=== PATIENT | female | born 1965 | race Caucasian/White ===

== ENCOUNTER 2021-10-05 19:36 | Emergency (ER) | payer OTHER, SELFPAY ==
--- NOTE | 2021-10-05 | ECG_ITS ---
Test Reason : CHEST PAIN Blood Pressure : / mmHG Vent. Rate : 093 BPM Atrial Rate : 093 BPM P-R Int : 160 ms QRS Dur : 082 ms QT Int : 308 ms P-R-T Axes : 074 092 034 degrees QTc Int : 382 ms Normal sinus rhythm Rightward axis Nonspecific T wave abnormality Abnormal ECG No previous ECGs available Referred By: Generic ED Physician Electronically Signed By:Aristeo Arriola
--- NOTE | ~2021-10-05 | XR_ITS ---
EXAMINATION: XR CHEST CLINICAL INFORMATION: Chest pain COMPARISON: None TECHNIQUE: Frontal portable view of the chest was obtained. 9:40 PM FINDINGS: No significant abnormality is noted involving the heart, lungs, mediastinum, bony thorax or soft tissues. XR/XR chest 1V IMPRESSION: Unremarkable examination.
[2021-10-05 19:37] VITALS: BP 183/98; PULSE 92; RESP 18; TEMP 36.8; O2SAT 100; BMI 22.1
[2021-10-05 19:52] LABS: MANUAL DIFF FLAG NO
[2021-10-05 19:53] LABS: Basophils Percent Auto 0.3 % (0-2); Eosinophils Absolute Auto 0.2 X10*3/uL (0.0-0.4); Eosinophils Percent Auto 3.1 % (0-4); Hematocrit 42.1 % (37.0-47.0); Hemoglobin 13.2 g/dl (12.0-16.0); Imm Gran Abs Auto 0.02 X10*3/uL (0.00-0.03); Imm Gran Pct Auto 0.3 % (0.0-0.4); Lymphocytes Absolute Auto 3.1 X10*3/uL (1.2-4.9); Lymphocytes Percent Auto 47.7 % (20-40); Mean Corpuscular HGB Conc 31.4 g/dl (31.0-35.0); Mean Corpuscular Hemoglobin 25.6 pg (27.0-33.0); Mean Corpuscular Volume 81.6 fL (80.0-98.0); Mean Platelet Volume 8.9 fL (9.4-12.3); Monocytes Absolute Auto 0.4 X10*3/uL (0.1-1.2); Monocytes Percent Auto 5.5 % (2-11); Neutrophils Absolute Auto 2.8 x10*3/uL (2.0-8.3); Neutrophils Percent Auto 43.1 % (45-73); Platelet Count 353 X10*3/uL (160-400); Red Blood Count 5.16 X10*6/uL (4.20-5.50); Red Cell Distribution Width 12.8 % (11.0-16.0); White Blood Count 6.5 X10*3/uL (4.8-10.8)
[2021-10-05 20:12] LABS: Troponin-I High Sensitivity < 3.5 ng/L (<3.5-17.0)
[2021-10-05 20:17] LABS: Anion Gap 11 (12-20); Blood Urea Nitrogen 13 mg/dL (9-16); Calcium 10.9 mg/dL (8.4-10.2); Carbon Dioxide 30 mmol/L (22-29); Chloride 102 mmol/L (96-108); Creatinine Clr Calc Pharmacy 59.1; Estimated Glomerular Filt Rate > 60; Glucose Random 91 mg/dL (60-115); Potassium 3.8 mmol/L (3.3-5.1); Sodium 139 mmol/L (135-145)
[2021-10-05 20:31] VITALS: BP 160/92; PULSE 75; RESP 16; TEMP 37.1; O2SAT 98
--- NOTE | 2021-10-05 20:50 | ED.CHESTPAIN ---
HPI - Chest Pain General Chief Complaint: Chest Pain Stated Complaint: chest pain 3xdays Time Seen by Provider: 10/05/21 20:50 Source: patient Mode of arrival: ambulatory Limitations: no limitations History of Present Illness HPI narrative: Patient history of anxiety no known coronary disease been having high blood pressure for last 1 month checking at work and 180s/90s, states that she had COVID last year and also had a stroke with face twisting but never went to the hospital for that no confirmation of the stroke no other focal weakness. Also she said she had a heart attack but never seen a change director and never had no workup done patient keeps changing adding on the complains now saying that she has mid chest pain and right hand numbness and left leg numbness sometimes cyst chest pain is sharp she is going on for last 3 days localized in mid epigastric area no heartburn feeling no radiation of the pain no shortness of breath no diaphoresis no nausea no vomiting patient seems very anxious on arrival Related Data Previous Rx's Medication Instructions Recorded lisinopril 5 mg tablet 5 mg PO DAILY #30 tab 10/05/21 Allergies Allergy/AdvReac Type Severity Reaction Status Date / Time No Known Allergies Allergy Verified 10/05/21 19:44 [No Known Allergies*] Review of Systems Review of Systems: Yes all other systems are reviewed and are negative PMFSH Social History Social History Advance Directives: No Advance Directives Information Provided: No Patient : No Physical Exam Vital Signs: Vital Signs: Last Vital Signs Temp 98.8 F 10/05/21 20:31 Pulse 74 10/05/21 21:00 Resp 16 10/05/21 20:31 BP 171/90 H 10/05/21 21:00 Pulse Ox 97 10/05/21 21:00 BMI result Body Mass Index 22.1 Appearance: Alert. Oriented X3. No acute distress. Anxious Eyes: No pallor icterus ENT: Pharynx normal. Oral Mucosa moist Neck: Normal inspection. Neck supple. CVS: Normal heart rate and rhythm. Pulses normal. Respiratory: No respiratory distress. Equal air entry bilateral, Abdomen: Soft and nontender. Bowel sounds are present, no mass palpable, no CVA tenderness Skin: Skin warm and dry. Normal skin color. Normal skin turgor. Extremities: No lower extremity edema. No calf tenderness Neuro: Oriented X 3. No motor deficit. No sensory deficit.No cerebellar signs , cranial nerves II-XII intact MDM - Chest Pain MDM Narrative Medical decision making narrative: Patient with multiple complaints very anxious on arrival blood pressure was checked was 183/98 repeat was 170/90 patient does have a blood pressure for last 1 month has not seen a PCP or a long-time will give her lisinopril 5 mg and also to the chest x-ray patient high sensitive troponin negative EKG without any acute ischemic change Lab Data Attestation: I reviewed the patient's lab results. Result diagrams: 10/05/21 19:48 10/05/21 19:48 Labs: Lab Results 10/05/21 10/05/21 10/05/21 Range/Units 19:48 19:48 19:48 WBC 6.5 (4.8-10.8) X10*3/uL RBC 5.16 (4.20-5.50) X10*6/uL Hgb 13.2 (12.0-16.0) g/dl Hct 42.1 (37.0-47.0) % MCV 81.6 (80.0-98.0) fL MCH 25.6 L (27.0-33.0) pg MCHC 31.4 (31.0-35.0) g/dl RDW 12.8 (11.0-16.0) % Plt Count 353 (160-400) X10*3/uL MPV 8.9 L (9.4-12.3) fL Immature Gran % (Auto) 0.3 (0.0-0.4) % Neut % (Auto) 43.1 L (45-73) % Lymph % (Auto) 47.7 H (20-40) % Wagoner % (Auto) 5.5 (2-11) % Eos % (Auto) 3.1 (0-4) % Baso % (Auto) 0.3 (0-2) % Lymph # (Auto) 3.1 (1.2-4.9) X10*3/uL Wagoner # (Auto) 0.4 (0.1-1.2) X10*3/uL Eos # (Auto) 0.2 (0.0-0.4) X10*3/uL Baso # (Auto) 0.0 (0.0-0.2) X10*3/uL Abs Immat Gran (auto) 0.02 (0.00-0.03) X10*3/uL Absolute Neuts (auto) 2.8 (2.0-8.3) x10*3/uL Absolute Nucleated RBC 0.000 (0.0-0.012) X10*3/uL Nucleated RBC % (auto) 0.0 (0.0-0.2) /100WBC Sodium 139 (135-145) mmol/L Potassium 3.8 (3.3-5.1) mmol/L Chloride 102 (96-108) mmol/L Carbon Dioxide 30 H (22-29) mmol/L Anion Gap 11 L (12-20) BUN 13 (9-16) mg/dL Creatinine 0.89 (0.5-1.4) mg/dL Estim Creat Clear Calc 59.1 Estimated GFR > 60 Random Glucose 91 (60-115) mg/dL Calcium 10.9 H (8.4-10.2) mg/dL Troponin I High Sens < 3.5 (<3.5-17.0) ng/L ECG Data ECG #1: Attestation: I personally reviewed and interpreted this ECG as follows: Interpretation: Normal sinus rhythm heart rate 93 beats per minute right-sided axis normal interval normal axis no acute restricted acute ischemia Discharge Plan Discharge Clinical Impression: Atypical chest pain, Hypertension Patient Disposition: Home, Self-Care Instructions: Chest Pain (ED), Hypertension (ED) Additional Instructions: Your chest pain does not seems to be cardiac in origin , follow-up with PCP for further evaluation Your blood pressure was slightly elevated possibly have bottle and hypertension will started on lisinopril 5 mg daily which she should take daily decrease salt intake and follow with PCP Prescriptions: New lisinopril 5 mg tablet 5 mg PO DAILY Qty: 30 0RF Interventions: ED Discharge Assessment Last Done: 10/05/21 22:28
[2021-10-05 20:57] VITALS: PULSE 73
[2021-10-05 21:00] VITALS: BP 171/90; PULSE 74; O2SAT 97
[2021-10-05] MEDS: lisinopriL 5 MG TABLET PO (21:32)
== END 2021-10-05 22:41 | disposition home or self-care (01) ==
PROVIDERS: Emergency Provider Internal Medicine
DX: R07.89 Other chest pain (principal); R10.13 Epigastric pain; I10 Essential (primary) hypertension; Z79.899 Other long term (current) drug therapy
CPT/HCPCS: 36415; 71045; 80048; 84484; 85025; 93005; 99283; 99285

== ENCOUNTER 2022-01-24 17:28 | Emergency (ER) | payer OTHER, SELFPAY ==
--- NOTE | ~2022-01-24 | XR_ITS ---
Examination: XR hand wrist RT Indication: pain Comparison: No pertinent prior studies are currently available for comparison. Technique: 4 plain film views of the right wrist Findings: Bones are in normal anatomic alignment with no acute fracture or dislocation seen. Carpal alignment is unremarkable. No bony destructive lesions or erosions. No periosteal reaction. No radiopaque foreign body or soft tissue gas. XR/XR hand wrist RT Impression: No acute bony abnormality.
[2022-01-24 17:42] VITALS: BP 169/94; PULSE 87; RESP 18; TEMP 36.8; O2SAT 99; BMI 21.4
--- NOTE | 2022-01-24 20:22 | ED.EXTPRO ---
HPI - Extremity Problem General Chief complaint: Extremity Injury, Upper Stated complaint: pain in arm, blood clot? Time Seen by Provider: 01/24/22 19:13 Source: patient Mode of arrival: ambulatory Limitations: no limitations History of Present Illness HPI Narrative: 56-year-old female with a history of hypertension presents with constant right wrist pain which radiates up to the elbow since April of 2021. Patient denies any injury or trauma. She tells me the pain began when she was diagnosed with COVID-19. She has not followed up with a primary care doctor and is trying to establish one currently. Patient reports pain is constant. It starts in the right wrist and radiates up to the elbow and down to the right thumb. It is associated with some numbness and tingling. Patient feels like the vein over my wrist is swollen and painful. She is right-handed. She does work at a job that requires her to use her hands frequently. She denies any chest pain, shortness of breath, fevers, chills. Related Data Previous Rx's Medication Instructions Recorded lisinopril 5 mg tablet 5 mg PO DAILY #30 tabs 10/05/21 naproxen 500 mg tablet 500 mg PO BID PRN pain #30 tabs 01/24/22 prednisone 20 mg tablet 40 mg PO DAILY #10 tabs 01/24/22 Allergies Allergy/AdvReac Type Severity Reaction Status Date / Time No Known Allergies Allergy Verified 01/24/22 17:41 [No Known Allergies*] Review of Systems Review of Systems: Yes all other systems are reviewed and are negative Constitutional: Constitutional: Reports no additional constitutional complaints, Denies body ache(s), Denies chills, Denies fever(s), Denies headache(s) and Denies weakness Eyes: Eyes: Reports no additional eye complaints and Denies change in vision ENT: Reports system reviewed and no additional complaints, except as documented, Denies dizziness, Denies headache(s), Denies nasal congestion, Denies nasal discharge and Denies neck pain Cardiovascular: Cardiovascular: Reports no additional cardiovascular complaints, Denies chest pain, Denies leg edema and Denies dyspnea Respiratory: Respiratory: Reports no additional respiratory complaints, Denies cough and Denies dyspnea Gastrointestinal: Gastrointestinal: Reports no additional gastrointestinal complaints, Denies abdominal pain, Denies diarrhea, Denies nausea and Denies vomiting Genitourinary: Genitourinary: Reports no additional female genitourinary complaints and Denies urinary incontinence Musculoskeletal: Musculoskeletal: Reports no additional musculoskeletal complaints, Denies back pain, Reports arthralgias, Denies joint swelling, Denies neck pain, Reports numbness, Reports radiating pain into limb and Reports tingling Integumentary/Breasts: Skin/Breast: Reports system reviewed and no additional complaints, except as docu and Denies rash Neurologic: Reports system reviewed and no additional complaints, except as documented, Denies Abnormal speech present, Denies dizziness, Denies headache(s), Reports numbness, Reports tingling and Denies weakness PMFSH Past Medical History Attestation statement: The following information was validated with the patient. Source: old records reviewed and nursing notes reviewed Social History Social History Advance Directives: No Advance Directives Information Provided: No Physical Exam Vital Signs: Vital Signs: Last Vital Signs Temp 98.2 F 01/24/22 17:42 Pulse 87 01/24/22 17:42 Resp 18 01/24/22 17:42 BP 169/94 H 01/24/22 17:42 Pulse Ox 99 01/24/22 17:42 O2 Del Method 01/24/22 17:42 BMI result Body Mass Index 21.4 Const: General: cooperative, healthy appearing, comfortable and no acute distress Orientation/consciousness: patient oriented x3 Limitations: no limitations HEENT: Head: Yes normal to inspection Ears: hearing grossly normal bilaterally General nose exam: Normal external nose present Face and sinus: Yes normal facial exam Mouth: Normal oral and palatal mucosa present Throat: Yes posterior oropharynx normal Eyes: General: appearance normal, both eyes and all related structures Pupils: Equal, round and reactive pupils present Neck: Neck: Yes normal visual inspection Chest: Chest palpation & inspection: normal inspection of the chest Resp: Effort & Inspection: normal respiratory effort Auscultation: clear to auscultation bilaterally Cardio: Rate: regular rate Rhythm: regular rhythm Peripheral pulses: Peripheral pulses 2+ throughout GI: Inspection: Yes normal to inspection Palpation (GI): Soft to palpation and nontender Auscultation: normal bowel sounds Back/Spine/Pelvis: Thoracic/Lumbar Spine: thoracic and lumbar spine normal to inspection Skin: General skin exam: no rashes or lesions noted Neuro: General: patient oriented x3, no focal motor deficits and normal sensation to monofilament Cranial nerves: Yes Equal, round and reactive pupils present Cognition (Neuro): normal cognition Speech: No Abnormal speech present Gait exam (Neuro): Normal gait present Motor exam (neuro): 5/5 motor strength present throughout Extrem: Other: Pain over the right wrist over the radial aspect with no appreciable swelling/redness noted. 2+ radial and ulnar pulses +finklestein test Negative tinel signs Unable to tolerate phalen test d/t pain FROM of hand/wrist/elbow Strength 5/5 RUE NV intact distally. Sensation intact on exam General: Yes normal to inspection Course Course Course Narrative: x-rays show no acute bony abnormality. Exam is c/w with dequervain tendoitis. Patient to be placed in a velcro cock up splint, will start NSAID, prednisone course. She can f/u with orthopedics for persistent symptoms. Reviewed worrisome signs/symptoms with patient and when to seek additional care (redness, swelling, fever). Comfortable with discharge home. MDM - Extremity (Nontraumatic) MDM Narrative Medical decision making narrative: 56 yo female who is right handed presents with 10 months of right wrist pain which radiates down to the right thumb and up to the right elbow with numbness/tingling which is constant with no known injury or trauma. On exam pain over the right radial wrist which is worsened with palpation and finklestein test. Sensation normal on exam. Will check x-rays. DDX dequervains, tendonitis, carpal tunnel No swelling, redness, risk factors concerning for DVT Medical Records Attestation: I reviewed the patient's medical records. Lab Data Attestation: I reviewed the patient's lab results. Imaging Data hand/wrist xray: Attestation: I personally reviewed and interpreted this imaging study as follows: Radiologist's impression: Examination: XR hand wrist RT Indication: pain Comparison:? No pertinent prior studies are currently available for comparison. Technique: 4 plain film views of the right wrist Findings: Bones are in normal anatomic alignment with no acute fracture or dislocation seen. Carpal alignment is unremarkable. No bony destructive lesions or erosions. No periosteal reaction. No radiopaque foreign body or soft tissue gas. XR/XR hand wrist RT Impression: No acute bony abnormality. Procedures Orthopedic Splinting/Casting Injury #1: Side: right Upper Extremity Injury Location: wrist Additional Comments: cock up splint-velcro Discharge Plan Discharge Clinical Impression: De Quervain's disease (radial styloid tenosynovitis) Patient Disposition: Home, Self-Care Instructions: De Quervain Disease (ED) Additional Instructions: ice to the area limit use of the extremity Prescriptions: New naproxen 500 mg tablet 500 mg PO BID PRN (Reason: pain) Qty: 30 0RF prednisone 20 mg tablet 40 mg PO DAILY Qty: 10 0RF No Action lisinopril 5 mg tablet 5 mg PO DAILY Qty: 30 0RF Referrals: [facility] [place] [facility] [Provider Group] - 2 weeks Stand Alone Forms: Work/School Release Interventions: ED Discharge Assessment Last Done: 01/24/22 21:28 Discharge Date/Time: 01/24/22 21:29
== END 2022-01-24 21:29 | disposition home or self-care (01) ==
PROVIDERS: Emergency Provider Emergency Medicine
DX: M65.4 Radial styloid tenosynovitis [de Quervain] (principal); M79.601 Pain in right arm
CPT/HCPCS: 73110; 73130; 99282; 99283

== ENCOUNTER 2022-08-06 22:22 | Emergency (ER) | payer OTHER, SELFPAY ==
--- NOTE | ~2022-08-06 | XR_ITS ---
EXAMINATION: XR CHEST CLINICAL INFORMATION: Chest pain COMPARISON: 10/05/2021 TECHNIQUE: Frontal view of the chest was obtained. FINDINGS: The lungs appear hyperinflated. No focal consolidation is seen. No evidence of pneumothorax, pleural effusion, or pulmonary edema. The cardiomediastinal contour is unremarkable. No acute osseous findings are seen. XR/XR chest 1V IMPRESSION: No acute cardiopulmonary findings. Hyperinflated lungs suggesting COPD.
--- NOTE | 2022-08-06 22:24 | ECG_ITS ---
Test Reason : CHEST PAIN Blood Pressure : / mmHG Vent. Rate : 080 BPM Atrial Rate : 080 BPM P-R Int : 164 ms QRS Dur : 088 ms QT Int : 360 ms P-R-T Axes : 069 092 077 degrees QTc Int : 415 ms Normal sinus rhythm Rightward axis Borderline ECG When compared with ECG of 05-OCT-2021 19:36, T wave inversion no longer evident in Inferior leads Referred By: Generic ED Physician Electronically Signed By:LISA GUAMAN MD
[2022-08-06 22:34] VITALS: BP 163/93; PULSE 86; RESP 16; TEMP 36.8; O2SAT 99; BMI 22.6
[2022-08-06 22:51] LABS: Basophils Percent Auto 0.4 % (0-2); Eosinophils Absolute Auto 0.2 X10*3/uL (0.0-0.4); Hematocrit 41.1 % (37.0-47.0); Hemoglobin 12.9 g/dl (12.0-16.0); Imm Gran Abs Auto 0.02 X10*3/uL (0.00-0.03); Imm Gran Pct Auto 0.3 % (0.0-0.4); Lymphocytes Absolute Auto 3.4 X10*3/uL (1.2-4.9); Lymphocytes Percent Auto 45.9 % (20-40); MANUAL DIFF FLAG NO; Mean Corpuscular HGB Conc 31.4 g/dl (31.0-35.0); Mean Corpuscular Hemoglobin 25.6 pg (27.0-33.0); Mean Corpuscular Volume 81.7 fL (80.0-98.0); Mean Platelet Volume 8.8 fL (9.4-12.3); Monocytes Absolute Auto 0.4 X10*3/uL (0.1-1.2); Monocytes Percent Auto 5.7 % (2-11); Neutrophils Absolute Auto 3.3 x10*3/uL (2.0-8.3); Neutrophils Percent Auto 44.7 % (45-73); Platelet Count 346 X10*3/uL (160-400); Red Blood Count 5.03 X10*6/uL (4.20-5.50); Red Cell Distribution Width 12.4 % (11.0-16.0); White Blood Count 7.4 X10*3/uL (4.8-10.8)
[2022-08-06 23:03] LABS: COVID-19 Test Negative (Negative); IDNOW Serial# 6674DD1D
[2022-08-06 23:05] LABS: Anion Gap 12 (12-20); Blood Urea Nitrogen 17 mg/dL (9-16); Calcium 10.1 mg/dL (8.4-10.2); Carbon Dioxide 25 mmol/L (22-29); Chloride 107 mmol/L (96-108); Estimated Glomerular Filt Rate > 60; Glucose Random 98 mg/dL (60-115); Magnesium 1.6 mg/dL (1.6-2.6); Potassium 4.1 mmol/L (3.3-5.1); Sodium 140 mmol/L (135-145)
[2022-08-06 23:13] LABS: Troponin-I High Sensitivity < 3.5 ng/L (<3.5-17.0)
[2022-08-06 23:39] LABS: Alanine Aminotransferase 34 U/L (0-31); Albumin Level 4.3 g/dL (3.5-5.0); Alkaline Phosphatase 112 U/L (39-117); Aspartate Amino Transferase 24 U/L (5-31); Bilirubin Direct < 0.2 mg/dL (0.0-0.5); Bilirubin Total 0.3 mg/dL (0.0-1.0); Lipase 19 U/L (8-78); Total Protein 7.4 g/dL (6.5-8.0)
--- NOTE | 2022-08-07 00:17 | ED.CHESTPAIN ---
HPI - Chest Pain General Chief Complaint: Chest Pain Stated Complaint: chest pain,cough Time Seen by Provider: 08/07/22 00:16 Source: patient Mode of arrival: ambulatory History of Present Illness HPI narrative: 57-year-old female who has been recently evaluated and appears to yandy recent diagnosis of asthma, denies any smoking history and states that she saw a travel information center supervisor yesterday that he did not inform her of anything. Patient states that she has had constant chest pain that feels like spasms for the past 3 days this is not been associated with any fevers or chills but she has also had a cough without GI or symptoms. Related Data Previous Rx's Medication Instructions Recorded lisinopril 5 mg tablet 5 mg PO DAILY #30 tabs 10/05/21 naproxen 500 mg tablet 500 mg PO BID PRN pain #30 tabs 01/24/22 prednisone 20 mg tablet 40 mg PO DAILY #10 tabs 01/24/22 prednisone 50 mg tablet 50 mg PO DAILY 4 days #4 tabs 08/07/22 Allergies Allergy/AdvReac Type Severity Reaction Status Date / Time No Known Allergies Allergy Verified 08/06/22 22:34 [No Known Allergies*] Review of Systems Review of Systems: Pertinent positives and negatives as stated in HPI ON LICENSE OF [facility] Past Medical History Source: nursing notes reviewed Social History Social History Alcohol intake: never Smoked in Last 30 Days: No Use of substances other than those prescribed or required for medical reasons: No Advance Directives: No Advance Directives Information Provided: No Patient : No Physical Exam Vital Signs: Vital Signs: Last Vital Signs Temp 98.3 F 08/07/22 00:20 Pulse 79 08/07/22 00:40 Resp 14 08/07/22 00:40 BP 152/96 H 08/07/22 00:20 Pulse Ox 98 08/07/22 00:20 O2 Del Method 08/07/22 00:20 BMI result Body Mass Index 22.6 VITAL SIGNS: Reviewed. GENERAL: Well developed, well nourished, in no acute distress. HEAD: Normocephalic/atraumatic EYES: PERRLA, EOMI EARS: Ext canals without abnormality, TMs non-bulging and non-erythematous NOSE: Nares patent bilateral OROPHARYNX: no oral lesions noted, posterior pharynx clear NECK: Supple, no adenopathy LUNGS: Normal breath sounds. No adventitious sounds or accessory muscle use. SpO2<98> CARDIOVASCULAR: Regular rate and rhythm without noted murmurs, no JVD or lower extremity edema. ABDOMEN: Soft, non-tender, non-distended with bowel sounds. MUSCULOSKELETAL: No tenderness, deformities, or effusions noted on gross inspection. EXTREMITIES: No cyanosis, clubbing or edema. SKIN: Inspection of the skin reveals no rashes NEUROLOGIC: Alert and oriented x 4. Strength and sensation to light touch were grossly intact x 4. Medications Administered Discontinued Medications Generic Name Dose Route Start Last Admin Trade Name Freq PRN Reason Stop Dose Admin Al Hydroxide/Mg Hydroxide 30 ml 08/06/22 23:17 08/07/22 00:32 Magnesium Hydrox/Alum Hydrox 30 Ml Oral.Susp PO 08/06/22 23:18 30 ml ONCE ONE Administration Amlodipine Besylate 5 mg 08/07/22 00:28 08/07/22 00:48 Amlodipine Besylate 5 Mg Tablet PO 08/07/22 00:29 5 mg ONCE ONE Administration Protocol Benzonatate 200 mg 08/07/22 00:31 08/07/22 00:48 Benzonatate 100 Mg Capsule PO 08/07/22 00:32 200 mg ONCE ONE Administration Albuterol Sulfate 10 mg/ 0 mg 08/07/22 00:26 08/07/22 00:40 Ipratropium [place] 0.5 mg INHALE 08/07/22 00:27 1 each ONCE ONE Administration Lidocaine HCl 10 ml 08/06/22 23:17 08/07/22 00:32 Lidocaine Hcl Viscous 2 % 15 Ml Solution MUCOUS MEM 08/06/22 23:18 10 ml ONCE ONE Administration Prednisone 50 mg 08/07/22 00:26 08/07/22 00:33 Prednisone 10 Mg Tablet PO 08/07/22 00:27 50 mg ONCE ONE Administration Sucralfate 1 gm 08/07/22 00:31 08/07/22 00:48 Sucralfate Oral Suspension 1 Gm/10 Ml Oral.Susp PO 08/07/22 00:32 1 gm ONCE ONE Administration Medical Decision Making Medical Decision Making MDM Narrative: 57-year-old female with history and clinical presentation after review of investigations as well as review of current medication list I suspect patient may have a component of esophagitis with a combination of prednisone naproxen being noted on her medication list. She has no fever/ chills to suggest infectious etiology and no GI or symptoms to further support any sort of viral illness. My interpretation is in agreement with radiology's impression of the imaging study. Patient will receive a 10 mg DuoNeb and 50 mg of prednisone in addition to a GI cocktail Carafate. HEART Score-2 Reviewed all investigations and on re-evaluation patient is feeling much better and my interpretation is that patient likely had mild exacerbation of asthma. I discussed all treatments and plans with her as well as results and she will follow-up with her primary care provider on Monday. Differential Diagnosis Please see the discussion above Lab Data Please see the discussion above 08/06/22 22:45 08/06/22 22:45 Labs: Lab Results 08/06/22 08/06/22 08/06/22 Range/Units 22:45 22:45 22:45 WBC 7.4 (4.8-10.8) X10*3/uL RBC 5.03 (4.20-5.50) X10*6/uL Hgb 12.9 (12.0-16.0) g/dl Hct 41.1 (37.0-47.0) % MCV 81.7 (80.0-98.0) fL MCH 25.6 L (27.0-33.0) pg MCHC 31.4 (31.0-35.0) g/dl RDW 12.4 (11.0-16.0) % Plt Count 346 (160-400) X10*3/uL MPV 8.8 L (9.4-12.3) fL Immature Gran % (Auto) 0.3 (0.0-0.4) % Neut % (Auto) 44.7 L (45-73) % Lymph % (Auto) 45.9 H (20-40) % [place] % (Auto) 5.7 (2-11) % Eos % (Auto) 3.0 (0-4) % Baso % (Auto) 0.4 (0-2) % Lymph # (Auto) 3.4 (1.2-4.9) X10*3/uL [place] # (Auto) 0.4 (0.1-1.2) X10*3/uL Eos # (Auto) 0.2 (0.0-0.4) X10*3/uL Baso # (Auto) 0.0 (0.0-0.2) X10*3/uL Abs Immat Gran (auto) 0.02 (0.00-0.03) X10*3/uL Absolute Neuts (auto) 3.3 (2.0-8.3) x10*3/uL Absolute Nucleated RBC 0.000 (0.0-0.012) X10*3/uL Nucleated RBC % (auto) 0.0 (0.0-0.2) /100WBC Sodium 140 (135-145) mmol/L Potassium 4.1 (3.3-5.1) mmol/L Chloride 107 (96-108) mmol/L Carbon Dioxide 25 (22-29) mmol/L Anion Gap 12 (12-20) BUN 17 H (9-16) mg/dL Creatinine 0.73 (0.5-1.4) mg/dL Estim Creat Clear Calc 68.0 Estimated GFR > 60 Random Glucose 98 (60-115) mg/dL Calcium 10.1 D (8.4-10.2) mg/dL Magnesium 1.6 (1.6-2.6) mg/dL Total Bilirubin 0.3 (0.0-1.0) mg/dL Direct Bilirubin < 0.2 (0.0-0.5) mg/dL AST 24 (5-31) U/L ALT 34 H (0-31) U/L Alkaline Phosphatase 112 (39-117) U/L Troponin I High Sens < 3.5 (<3.5-17.0) ng/L Total Protein 7.4 (6.5-8.0) g/dL Albumin 4.3 (3.5-5.0) g/dL Lipase 19 (8-78) U/L COVID-19 ([facility]) (Negative) COVID-19 Clin Com 08/06/22 Range/Units 22:45 WBC (4.8-10.8) X10*3/uL RBC (4.20-5.50) X10*6/uL Hgb (12.0-16.0) g/dl Hct (37.0-47.0) % MCV (80.0-98.0) fL MCH (27.0-33.0) pg MCHC (31.0-35.0) g/dl RDW (11.0-16.0) % Plt Count (160-400) X10*3/uL MPV (9.4-12.3) fL Immature Gran % (Auto) (0.0-0.4) % Neut % (Auto) (45-73) % Lymph % (Auto) (20-40) % [place] % (Auto) (2-11) % Eos % (Auto) (0-4) % Baso % (Auto) (0-2) % Lymph # (Auto) (1.2-4.9) X10*3/uL [place] # (Auto) (0.1-1.2) X10*3/uL Eos # (Auto) (0.0-0.4) X10*3/uL Baso # (Auto) (0.0-0.2) X10*3/uL Abs Immat Gran (auto) (0.00-0.03) X10*3/uL Absolute Neuts (auto) (2.0-8.3) x10*3/uL Absolute Nucleated RBC (0.0-0.012) X10*3/uL Nucleated RBC % (auto) (0.0-0.2) /100WBC Sodium (135-145) mmol/L Potassium (3.3-5.1) mmol/L Chloride (96-108) mmol/L Carbon Dioxide (22-29) mmol/L Anion Gap (12-20) BUN (9-16) mg/dL Creatinine (0.5-1.4) mg/dL Estim Creat Clear Calc Estimated GFR Random Glucose (60-115) mg/dL Calcium (8.4-10.2) mg/dL Magnesium (1.6-2.6) mg/dL Total Bilirubin (0.0-1.0) mg/dL Direct Bilirubin (0.0-0.5) mg/dL AST (5-31) U/L ALT (0-31) U/L Alkaline Phosphatase (39-117) U/L Troponin I High Sens (<3.5-17.0) ng/L Total Protein (6.5-8.0) g/dL Albumin (3.5-5.0) g/dL Lipase (8-78) U/L COVID-19 ([place]) Negative (Negative) COVID-19 Clin Com See Note Independent Interpretation I performed an independent interpretation of an: EKG Interpretation: Normal sinus rhythm, HR-80, no STEMI, IN/QRS/QTC are within normal limits. There are no acute changes on his EKG when compared to prior from 10/05/2021. Radiology Impression Radiologist Impression: My interpretation is in agreement with radiology's impression of the imaging study. External Record Review External record reviewed: Outpatient record and Prior outpatient labs Chronic Conditions Patient?s care impacted by: Hypertension Critical Care Time Critical Care Time Critical Care Time: Yes Total Critical Care Time: 30 Attestation: I personally attest to this time spent taking care of the patient. Discharge Plan Discharge Clinical Impression: Atypical chest pain, Asthma exacerbation Patient Disposition: Home, Self-Care Instructions: Asthma (ED) Additional Instructions: 1. Resume all home medications as prescribed. 2. Please complete the short course of steroids as prescribed. 3. Follow-up with your primary care provider by calling the office on Monday morning. Return to the ER for any worsening symptoms. Prescriptions: New prednisone 50 mg tablet 50 mg PO DAILY 4 Days Qty: 4 0RF No Action lisinopril 5 mg tablet 5 mg PO DAILY Qty: 30 0RF naproxen 500 mg tablet 500 mg PO BID PRN (Reason: pain) Qty: 30 0RF prednisone 20 mg tablet 40 mg PO DAILY Qty: 10 0RF Referrals: Marianela Hennessy DO [Primary Care Provider] -
[2022-08-07 00:20] VITALS: BP 152/96; PULSE 66; RESP 16; TEMP 36.8; O2SAT 98
--- NOTE | 2022-08-07 00:20 | MHC.EDTECH ---
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
--- NOTE | 2022-08-07 00:23 | PC.NURSE ---
assumed care of this pt at this time; meds are showing as being overdue per MAR
[2022-08-07] MEDS: Magnesium Hydrox/Alum Hydrox 30 ML ORAL.SUSP PO (00:32)
[2022-08-07] MEDS: Lidocaine HCl Viscous 2 % 15 ML SOLUTION 10 ML MUCOUS MEM (00:32)
[2022-08-07] MEDS: predniSONE 10 MG TABLET 50 MG PO (00:33)
[2022-08-07 00:40] VITALS: PULSE 79; RESP 14; O2SAT 100
[2022-08-07] MEDS: Sucralfate Oral Suspension 1 GM/10 ML ORAL.SUSP PO (00:48)
[2022-08-07] MEDS: amLODIPine Besylate 5 MG TABLET PO (00:48)
[2022-08-07] MEDS: Benzonatate 100 MG CAPSULE 200 MG PO (00:48)
[2022-08-07 01:37] VITALS: PULSE 83
[2022-08-07 02:00] VITALS: BP 141/93; PULSE 95; RESP 16; TEMP 36.9; O2SAT 97
--- NOTE | 2022-08-07 02:38 | MHC.EDTECH ---
pt urine sample collected and sent to lab .
--- NOTE | 2022-08-07 02:39 | PC.NURSE ---
Discharge instructions given/explained, ambulates safely/independently, no SOB, pt able to speak in full sentences, no respiratory distress
[2022-08-07 02:50] LABS: Appearance Urine Clear; Color Urine Yellow; Glucose Urine UA Negative (Negative); Leukocyte Esterase Urine Moderate (2+) (Negative); Nitrite Urine Negative (Negative); PH 6.5 (5.0-9.0); Specific Gravity - Urine 1.025 (1.005-1.025); UMIC TRIGGER UACC YES; Urine Blood Negative (Negative); Urine Ketones Negative (Negative); Urine Protein Negative (Neg-Trace)
[2022-08-07 03:10] LABS: Bacteria Urine None Seen (None Seen); Hyaline Casts Urine 0-2 /LPF (0-2); RBC Urine 0-2 /HPF (0-2); Squamous Epithelial Cell Urine 0-2 /HPF (0-2); UACC Culture Trigger YES
== END 2022-08-07 02:38 | disposition home or self-care (01) ==
PROVIDERS: Emergency Provider Student in an Organized Health Care Education/Training Program; PCP Student in an Organized Health Care Education/Training Program
DX: R07.89 Other chest pain (principal); J45.901 Unspecified asthma with (acute) exacerbation; Z20.822 Contact with and (suspected) exposure to COVID-19; Z79.899 Other long term (current) drug therapy
CPT/HCPCS: 71045; 80048; 80076; 81001; 83690; 83735; 84484; 85025; 87086; 87635; 93005; 94640; 99284; 99285

== ENCOUNTER 2023-07-14 13:28 | Emergency (ER) | payer OTHER, SELFPAY ==
--- NOTE | ~2023-07-14 | XR_ITS ---
EXAMINATION: XR CHEST CLINICAL INFORMATION: Cough and chest pain COMPARISON: None available. TECHNIQUE: 2 views of the chest were obtained. FINDINGS: The lungs are expanded and clear. There is bilateral apical pleural thickening. Heart size and pulmonary vascularity is normal. There is dense sclerotic right anterior first rib, and likely left anterior costochondral sixth rib. It is new since 08/06/2022, suspicious. XR/XR chest 2V IMPRESSION: No acute process seen. Suspect dense appearing right anterior first rib and left sixth costochondral junction. Recommend outpatient CT chest exam
--- NOTE | 2023-07-14 14:01 | ED_ITS ---
HPI - General Adult General Chief complaint: Back Pain/Injury Stated complaint: back injury, tightness in chest Time Seen by Provider: 07/14/23 16:35 Source: patient Mode of arrival: ambulatory Limitations: no limitations History of Present Illness HPI narrative: Patient is a 58-year-old female with history of HTN presenting to the emergency department with complaint of lower back pain. 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 She describes this pain as a sudden onset of a cold sensation followed by a burning sensation but states that pain has since resolved in her thoracic area and is now across her lower back. She denies radiation to lower extremities. Denies new weakness, numbness, tingling to any extremities. Denies any saddle anesthesia or bowel or bladder incontinence. Denies any fall or other trauma. Denies dysuria, frequency or other urinary symptoms. She does report upper respiratory symptoms since Monday which she describes as the flu, states she tested for COVID and this was negative. Reports fevers initially, none over the past few days. Complains of ongoing chest tightness and nonproductive cough. States the cough is exacerbating her back pain. She did not take any [id number] medications prior to arrival. MD complaint: Back pain, cough Onset (ago): hour(s) Location: back Severity: severe Quality: aching Pain Consistency: constant Relieving factors: rest Exacerbating factors: movement Associated symptoms: cough Treatments prior to arrival: none Related Data Previous Rx's Medication Instructions Recorded lisinopril 5 mg tablet 5 mg PO DAILY #30 tabs 10/05/21 naproxen 500 mg tablet 500 mg PO BID PRN pain #30 tabs 01/24/22 prednisone 20 mg tablet 40 mg (2 x 20 mg) PO DAILY #10 tabs 01/24/22 prednisone 50 mg tablet 50 mg PO DAILY 4 days #4 tabs 08/07/22 cyclobenzaprine 5 mg tablet 5 mg PO TID PRN muscle spasm #10 07/14/23 tabs lidocaine 5 % topical patch 1 patch topical DAILY #15 ea 07/14/23 Allergies Allergy/AdvReac Type Severity Reaction Status Date / Time No Known Allergies Allergy Verified 07/14/23 14:01 [No Known Allergies*] Review of Systems 2 Review of Systems: As per HPI. Yes all other systems are reviewed and are negative Constitutional: Constitutional: Reports as per [facility] Social History Social History (System 04/05/23 @ 08:32 by Marce Springer) Alcohol intake: never Advance Directives: No Advance Directives Information Provided: No Physical Exam ED Vital Signs: Vital Signs - 24 hr 07/14/23 14:02 Temperature 98.3 F Pulse Rate 87 Respiratory Rate 16 Blood Pressure 143/109 H Pulse Oximetry 100 Oxygen Delivery Method Room Air BMI result Body Mass Index 21.9 Vital signs have been reviewed and appear to be correct. Blood pressure elevated. Heart rate normal. Respiratory rate normal. Temperature normal. Oxygen saturation normal. Const General: cooperative, healthy appearing and no acute distress Orientation/consciousness: oriented to person, oriented to place, oriented to time and patient oriented x3 Limitations: no limitations HENMT Head: Yes normocephalic and Yes atraumatic Ears: external ears normal General nose exam: Normal external nose present Face and sinus: Yes face symmetric Mouth: oropharynx normal and moist mucous membranes Throat: Yes uvula midline Eyes Pupils: Equal, round and reactive pupils present Neck Neck: Yes normal visual inspection, Yes no meningeal signs and Yes supple Resp Effort & Inspection: normal respiratory effort and able to speak in complete sentences Auscultation: clear to auscultation bilaterally Cardio Rate: regular rate Rhythm: regular rhythm Heart sounds: S1 normal heart sound present and S2 normal heart sound present GI Palpation (GI): Soft to palpation and nontender Auscultation: normoactive bowel sounds General: Yes no CVA tenderness Back/Spine/Pelvis Back: no CVA tenderness Cervical Spine: normal cervical lordosis, cervical ROM normal, No cervical muscular tenderness, No pain with cervical ROM, No Cervical spine tenderness and No step off deformity Thoracic/Lumbar Spine: thoracic and lumbar spine normal to inspection, thoraco- lumbar ROM normal, straight leg raise negative bilaterally, pain with thoraco- lumbar ROM, paraspinal muscle tenderness bilaterally in the upper lumbar and in the mid lumbar, No thoracic spinal tenderness and No lumbar spinal tenderness Pelvis: no pain with anterior-posterior compression and no pain with lateral compression Skin General skin exam: elasticity normal and turgor normal Neuro General: oriented to person, oriented to place, oriented to time, patient oriented x3, gait normal, tone normal, moves all extremities, Normal light touch and pain sensation, no meningeal signs, no focal motor deficits, CN's II-XI intact bilaterally and deep tendon reflexes 2+ bilaterally Cranial nerves: Yes Equal, round and reactive pupils present Cognition (Neuro): normal cognition Motor exam (neuro): 5/5 motor strength present throughout, Normal motor muscle tone present throughout and Motor abnormalities not present Sensory Exam: Normal double simultaneous stimulation for sensation Extrem General: Yes full ROM, Yes no pedal edema and Yes no calf tenderness Psych Mental Status: mental status grossly normal Affect: normal affect Thought process: Normal thought process present Course Course Course Narrative: This is an RME: Additional HPI, ROS, PE not included below will be deferred to primary provider. 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 He has also had respiratory symptoms past week coughing, reports chest discomfort described as tightness since yesterday, worse with cough/ deep breathing. Plan: Labs, viral testing, XR Medical Decision Making Medical Decision Making MDM Narrative: Patient is a 58-year-old female with history of HTN presenting to the emergency department with complaint of lower back pain. 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 On exam patient is awake, A+Ox3, BP elevated, VS otherwise WNL, afebrile, normal neurological exam without focal deficits, physical exam findings as above. Given reported symptoms and physical exam findings, initial differential includes mid back strain, lumbar strain, viral URI, Covid, flu, bronchitis, pneumonia. Do not suspect sepsis. Labs notable for no leukocytosis, no anemia, elevated ALT and alk phos, normal T bili. Patient denies any abdominal pain and abdomen is soft and nontender. Viral swabs negative. EKG shows normal sinus rhythm, negative troponin, do not suspect ACS. X-ray chest notable for no evidence of pneumonia, suspect dense appearing right anterior 1st rib and left 6th costochondral junction. My interpretation is in agreement with the radiologist's interpretation. X-ray results discussed with patient patient instructed to follow-up with primary care provider for follow-up outpatient CT scan of chest. Will treat back strain with cyclobenzaprine and topical lidocaine patches, advised patient to alternate Tylenol and ibuprofen. Offered to prescribe cough medication which patient declined. Return precautions discussed at bedside. Patient verbalized understanding of and agreement with plan of care. Differential Diagnosis Differential Diagnoses: The differential diagnosis associated with the presentation includes As per MDM. Lab Data [facility] Lab Attestation statement: I reviewed the patient's lab results. As per MDM. 07/14/23 14:42 07/14/23 14:42 Labs: Lab Results 07/14/23 Range/Units 14:42 WBC 6.1 (4.8-10.8) X10*3/uL RBC 5.34 (4.20-5.50) X10*6/uL Hgb 13.6 (12.0-16.0) g/dl Hct 43.3 (37.0-47.0) % MCV 81.1 (80.0-98.0) fL MCH 25.5 L (27.0-33.0) pg MCHC 31.4 (31.0-35.0) g/dl RDW 12.6 (11.0-16.0) % Plt Count 298 (160-400) X10*3/uL MPV 8.6 L (9.4-12.3) fL Immature Gran % (Auto) 0.3 (0.0-0.4) % Neut % (Auto) 46.1 (45-73) % Lymph % (Auto) 44.5 H (20-40) % [place] % (Auto) 5.3 (2-11) % Eos % (Auto) 3.3 (0-4) % Baso % (Auto) 0.5 (0-2) % Lymph # (Auto) 2.7 (1.2-4.9) X10*3/uL [place] # (Auto) 0.3 (0.1-1.2) X10*3/uL Eos # (Auto) 0.2 (0.0-0.4) X10*3/uL Baso # (Auto) 0.0 (0.0-0.2) X10*3/uL Abs Immat Gran (auto) 0.02 (0.00-0.03) X10*3/uL Absolute Neuts (auto) 2.8 (2.0-8.3) x10*3/uL Absolute Nucleated RBC 0.000 (0.0-0.012) X10*3/uL Nucleated RBC % (auto) 0.0 (0.0-0.2) /100WBC Sodium 137 (135-145) mmol/L Potassium 3.8 (3.3-5.1) mmol/L Chloride 100 (96-108) mmol/L Carbon Dioxide 27 (22-29) mmol/L Anion Gap 14 (12-20) BUN 11 (9-16) mg/dL Creatinine 0.62 (0.5-1.4) mg/dL Estim Creat Clear Calc 79.1 Estimated GFR > 60 Random Glucose 85 (60-115) mg/dL Calcium 11.6 H D (8.4-10.2) mg/dL Total Bilirubin 0.3 (0.0-1.0) mg/dL AST 25 (5-31) U/L ALT 42 H (0-31) U/L Alkaline Phosphatase 153 H (39-117) U/L Troponin I High Sens < 2.7 (<3.5-17.0) ng/L Total Protein 8.3 H (6.5-8.0) g/dL Albumin 4.4 (3.5-5.0) g/dL COVID-19 ([facility]) Negative (Negative) COVID-19 Clin Com See Note Influenza Type A ([place]) Negative (Negative) Influenza Type B ([place]) Negative (Negative) Influenza A & B Note See Note Independent Interpretation I performed an independent interpretation of an: EKG (Normal sinus rhythm, rate 94 beats per minute, normal NC interval, normal QTC) and Plain X-Ray Interpretation: No evidence of pneumonia on chest x-ray. Suspect dense appearing ribs, new since 08/2022. Radiology Impression Discussion of test interpretation with radiology: I have reviewed the radiologist's reading. Radiologist Impression: XR/XR chest 2V IMPRESSION: No acute process seen. Suspect dense appearing right anterior first rib and left sixth costochondral junction. Recommend outpatient CT chest exam External Record Review External record reviewed: Inpatient record, Office record and Outpatient record Prescription Management I considered prescription management with: Pain Medication and Other Discharge Plan Discharge Clinical Impression: Back strain, Upper respiratory virus, Abnormal chest x-ray Patient Disposition: Home, Self-Care Instructions: Acute Low Back Pain (ED), Viral Syndrome (ED) Additional Instructions: You were evaluated in the emergency department today for back pain. Your evaluation did not show signs of medical conditions requiring emergent intervention at this time. We recommended that you use 600mg of ibuprofen or 650mg of Tylenol every 6 hours as needed for pain. If necessary, you can alternate these medications so that you take one medication every 3 hours. For instance, at noon take ibuprofen, then at 3:00 p.m. take Tylenol, then at 6:00 p.m. take ibuprofen. You have been prescribed a muscle relaxer which you may take every 8 hours as needed for spasms. You have been prescribed 5% topical lidocaine patches which you can wear for up to 12 hours in a 24 hour period. Do not apply heat directly over the patches. 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 Return to the emergency department if you experience worsening back pain, difficulty walking, fevers, numbness, tingling, weakness, incontinence, groin numbness or tingling, or any other concerning symptoms. Prescriptions: New cyclobenzaprine 5 mg tablet 5 mg PO TID PRN (Reason: muscle spasm) Qty: 10 0RF lidocaine 5 % adhesive patch,medicated 1 patch topical DAILY Qty: 15 0RF Rx Instructions: leave on most painful area for up to 12 hrs No Action lisinopril 5 mg tablet 5 mg PO DAILY Qty: 30 0RF naproxen 500 mg tablet 500 mg PO BID PRN (Reason: pain) Qty: 30 0RF prednisone 20 mg tablet 40 mg PO DAILY Qty: 10 0RF prednisone 50 mg tablet 50 mg PO DAILY 4 Days Qty: 4 0RF
[2023-07-14 14:02] VITALS: BP 143/109; PULSE 87; RESP 16; TEMP 36.8; O2SAT 100; BMI 21.9
--- NOTE | 2023-07-14 14:05 | ECG_ITS ---
Test Reason : CHEST PAIN Blood Pressure : / mmHG Vent. Rate : 094 BPM Atrial Rate : 094 BPM P-R Int : 170 ms QRS Dur : 080 ms QT Int : 364 ms P-R-T Axes : 065 085 063 degrees QTc Int : 455 ms Normal sinus rhythm Nonspecific T wave abnormality Abnormal ECG No previous ECGs available Referred By: Tammy Darby Electronically Signed By:HOLLY SOLO
[2023-07-14 14:46] LABS: MANUAL DIFF FLAG NO
[2023-07-14 14:48] LABS: Basophils Percent Auto 0.5 % (0-2); Eosinophils Absolute Auto 0.2 X10*3/uL (0.0-0.4); Eosinophils Percent Auto 3.3 % (0-4); Hematocrit 43.3 % (37.0-47.0); Hemoglobin 13.6 g/dl (12.0-16.0); Imm Gran Abs Auto 0.02 X10*3/uL (0.00-0.03); Imm Gran Pct Auto 0.3 % (0.0-0.4); Lymphocytes Absolute Auto 2.7 X10*3/uL (1.2-4.9); Lymphocytes Percent Auto 44.5 % (20-40); Mean Corpuscular HGB Conc 31.4 g/dl (31.0-35.0); Mean Corpuscular Hemoglobin 25.5 pg (27.0-33.0); Mean Corpuscular Volume 81.1 fL (80.0-98.0); Mean Platelet Volume 8.6 fL (9.4-12.3); Monocytes Absolute Auto 0.3 X10*3/uL (0.1-1.2); Monocytes Percent Auto 5.3 % (2-11); Neutrophils Absolute Auto 2.8 x10*3/uL (2.0-8.3); Neutrophils Percent Auto 46.1 % (45-73); Platelet Count 298 X10*3/uL (160-400); Red Blood Count 5.34 X10*6/uL (4.20-5.50); Red Cell Distribution Width 12.6 % (11.0-16.0); White Blood Count 6.1 X10*3/uL (4.8-10.8)
[2023-07-14 15:07] LABS: Alanine Aminotransferase 42 U/L (0-31); Albumin Level 4.4 g/dL (3.5-5.0); Alkaline Phosphatase 153 U/L (39-117); Anion Gap 14 (12-20); Aspartate Amino Transferase 25 U/L (5-31); Bilirubin Total 0.3 mg/dL (0.0-1.0); Blood Urea Nitrogen 11 mg/dL (9-16); Calcium 11.6 mg/dL (8.4-10.2); Carbon Dioxide 27 mmol/L (22-29); Chloride 100 mmol/L (96-108); Creatinine Clr Calc Pharmacy 79.1; Estimated Glomerular Filt Rate > 60; Glucose Random 85 mg/dL (60-115); Potassium 3.8 mmol/L (3.3-5.1); Sodium 137 mmol/L (135-145); Total Protein 8.3 g/dL (6.5-8.0)
[2023-07-14 15:15] LABS: Troponin-I High Sensitivity < 2.7 ng/L (<3.5-17.0)
[2023-07-14 15:18] LABS: COVID-19 Test Negative (Negative); IDNOW Serial# 08D9AD1C; IDNOW Serial# 152EDE1D; Influenza A Negative (Negative); Influenza B2 Negative (Negative)
[2023-07-14 18:16] VITALS: BP 160/97; PULSE 84; RESP 16; O2SAT 98
[2023-07-14] MEDS: Ketorolac Tromethamine 30 MG/ML VIAL IM (18:24)
== END 2023-07-14 18:38 | disposition home or self-care (01) ==
PROVIDERS: Nurse Practitioner Family; Emergency Provider Emergency Medicine
DX: S39.012A Strain of muscle, fascia and tendon of lower back, initial encounter (principal); X50.9XXA Other and unspecified overexertion or strenuous movements or postures, initial encounter; J06.9 Acute upper respiratory infection, unspecified; R91.8 Other nonspecific abnormal finding of lung field; Z11.52 Encounter for screening for COVID-19; Y93.F9 Activity, other caregiving; Y92.9 Unspecified place or not applicable; Y99.0 Civilian activity done for income or pay
CPT/HCPCS: 71046; 80053; 84484; 85025; 87502; 87635; 93005; 96372; 99284; J1885

== ENCOUNTER → 2023-07-14 14:05 | Outpatient (BNV) | payer OTHER, SELFPAY | PROVIDERS: Emergency Provider Emergency Medicine; Visit Provider Internal Medicine | DX: R94.31 Abnormal electrocardiogram [ECG] [EKG] (principal) | CPT/HCPCS: 93010 ==

== ENCOUNTER 2024-06-11 11:04 | Outpatient (AMB) | payer OTHER, SELFPAY ==
[2024-06-11 11:15] VITALS: BP 110/78; PULSE 99; O2SAT 99; BMI 22.5
--- NOTE | 2024-06-11 11:15 | A.OFFPC_ITS ---
Vital Signs 06/11/24 11:15 Height 5 ft 2 in Weight 123 lb BMI 22.5 BP 110/78 Blood Pressure Location Lt brachial Position Sitting Pulse 99 Pulse Source Pulse Oximeter Pulse Oximetry (%) 99 Oxygen Delivery Method Room Air Intake Visit Reasons: New Pt visit PE OK PER DR. ZELAYA Intake Note: Pt is here today for New patient visit PE. Allergies Androgenic Anabolic Steroid Allergy (Verified 06/11/24 11:33) very high BP, palpitations Medication List - Last Reconciled 06/11/24 by Chante Zelaya MD albuterol sulfate 90 mcg/actuation 2 puffs inhalation Q6H PRN Tobacco use date assessed: 06/11/24 Dental Screening Dental Screen Date: 06/11/24 Did you have a dental visit in the last 12 months?: Yes Did you have a dental problem in the last 6 months where you did not have access to dental care?: No Was dental information given to patient?: Patient has dentist HPI New Pt visit PE OK PER DR. 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 Patient has not seen a primary care physician for over a year due to change in insurance. PMH of asthma . elevated blood pressure currently not taking medications, obstructive sleep apnea, she could not tolerate CPAP mask. [facility] Medical History (Updated 06/11/24 @ 12:15 by Chante Zelaya MD) History of blood transfusion Surgical History (Updated 06/11/24 @ 12:14 by Chante Zelaya MD) History of partial hysterectomy Family History (Updated 06/11/24 @ 11:39 by Bell Cutler [facility]) Father Heart problem Mother No problems noted. 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 How often do you have a drink containing alcohol?: Never 3. How often do you have six or more drinks on one occasion?: Never Total Score: 0 KANIKA-7 AMB Questionnaire KANIKA-7 Date KANIKA - 7 assessed: 06/11/24 Source: Developed by Drs. Paramjit Ramirez, Shu Mendes, Mert Cid and colleagues, with an educational gerardo from [employer]. Review of Systems Const All systems reviewed & are unremarkable except as noted in HPI and below Reports no additional complaints Eyes Reports no additional complaints ENT Reports no additional complaints Card Reports no additional complaints Resp Reports no additional complaints GI Reports no additional complaints Reports no additional complaints Musc Reports no additional complaints Physical exam (Primary Care) Vital Signs: Last Vital Signs Pulse 99 06/11/24 11:15 BP 110/78 06/11/24 11:15 Pulse Ox 99 06/11/24 11:15 Oxygen Delivery Method Room Air 06/11/24 11:15 BMI result Body Mass Index 22.5 Tobacco/Smoking Status: Tobacco use Status Tobacco use date assessed 06/11/24 06/11/24 11:16 Patient Tobacco Use Status Never used Tobacco 06/11/24 11:40 e-Cigarette/Vaping Use Never Used 06/11/24 11:40 Const General: no acute distress HENMT Head: Yes normal to inspection Ears: hearing grossly normal bilaterally General nose exam: Normal external nose present Face and sinus: Yes normal facial exam Mouth: Normal oral and palatal mucosa present Neck Neck: Yes no lymphadenopathy and Yes supple Resp Effort & Inspection: normal respiratory effort Auscultation: clear to auscultation bilaterally Cardio Rhythm: regular rhythm Heart sounds: S1 normal heart sound present and S2 normal heart sound present GI Inspection: Yes normal to inspection Palpation (GI): Soft to palpation Percussion: Yes normal to percussion Coding Level of Care Code Est Pt Prev Care 40-64y(47053) Diagnoses Annual physical exam Z00.00 Asthma J45.909 Elevated BP without diagnosis of hypertension R03.0 Sleep apnea G47.30 Hx of colonoscopy Z98.890 Assessment & Plan Assessment & Plan (1) Annual physical exam: Code(s): Z00.00 - Encounter for general adult medical examination without abnormal findings Category: Medical Plan: Well-balanced diet regular physical activity discussed with the patient. She declined colonoscopy Pap smear and pelvic exam and will obtain records from previous PCP. (2) Asthma: Comment: Steroids inhalers increased blood pressure Code(s): J45.909 - Unspecified asthma, uncomplicated Category: Medical Plan: Restart albuterol p.r.n.. (3) Elevated BP without diagnosis of hypertension: Code(s): R03.0 - Elevated blood-pressure reading, without diagnosis of hypertension Category: Medical Plan: Patient monitors her blood pressure at home (4) Sleep apnea: Comment: not using Cpap cannot tolerate Code(s): G47.30 - Sleep apnea, unspecified Category: Medical Plan: Check sleep study (5) Hx of colonoscopy: Comment: [facility] 2019, check records Code(s): Z98.890 - Other specified postprocedural states Category: Surgical Plan: Obtain records from [facility] Medications: New albuterol sulfate 90 mcg/actuation 2 puffs inhalation Q6H PRN 8.5 grams 3RF shortness of breath or wheezing Discontinued lisinopril Discontinued Reason: Patient Completed Course 5 mg PO DAILY 30 tabs 0RF prednisone Discontinued Reason: Patient Completed Course 40 mg (2 x 20 mg) PO DAILY 10 tabs 0RF naproxen Discontinued Reason: Patient Completed Course 500 mg PO BID PRN 30 tabs 0RF pain prednisone Discontinued Reason: Patient Completed Course 50 mg PO DAILY 4 days 4 tabs 0RF cyclobenzaprine Discontinued Reason: Patient Completed Course 5 mg PO TID PRN 10 tabs 0RF muscle spasm lidocaine 5% leave on most painful area for up to 12 hrs Discontinued Reason: Patient Completed Course 1 patch topical DAILY 15 ea 0RF
== END 2024-06-11 12:16 | disposition home or self-care (01) ==
PROVIDERS: Visit Provider Internal Medicine
DX: Z00.00 Encounter for general adult medical examination without abnormal findings (principal); J45.909 Unspecified asthma, uncomplicated; R03.0 Elevated blood-pressure reading, without diagnosis of hypertension; G47.30 Sleep apnea, unspecified; Z98.890 Other specified postprocedural states

== ENCOUNTER → 2024-06-11 11:04 | Outpatient (BNVA) | payer OTHER, SELFPAY | PROVIDERS: Visit Provider Internal Medicine | DX: Z00.00 Encounter for general adult medical examination without abnormal findings (principal); G47.33 Obstructive sleep apnea (adult) (pediatric); J45.909 Unspecified asthma, uncomplicated; R03.0 Elevated blood-pressure reading, without diagnosis of hypertension; Z98.890 Other specified postprocedural states | CPT/HCPCS: 96127; 99396 ==

== ENCOUNTER 2024-08-09 14:08 | Outpatient (AMB) | payer OTHER, SELFPAY ==
--- NOTE | 2024-08-09 14:20 | A.OFFPC_ITS ---
Vital Signs 08/09/24 14:21 Height 5 ft 2 in Weight 122 lb BMI 22.3 BP 112/76 Blood Pressure Location Lt brachial Position Sitting Pulse 82 Pulse Source Pulse Oximeter Temp 97.9 F Temp Source Oral Pulse Oximetry (%) 98 Intake Visit Reasons: 2m follow up Allergies Androgenic Anabolic Steroid Allergy (Verified 08/09/24 14:21) very high BP, palpitations Medication List - Last Reconciled 08/09/24 by Chante Zelaya MD albuterol sulfate 90 mcg/actuation 2 puffs inhalation Q6H PRN Tobacco use date assessed: 06/11/24 Dental Screening Dental Screen Date: 06/11/24 HPI 2m follow up HPI Details Pt presents for a follow-up. Patient reports worsening asthma since she has not been taking Symbicort. Patient can not afford albuterol co-payment. Her past medical history includes hyperparathyroidism and severe osteoporosis and patient will see a java programming professor and parathyroidectomy was discussed but because of the change in insurance she can not follow-up with her previous java programming professor. Patient has not been taking medications for hypertension but has been monitoring her blood pressure at home and getting normal readings. [facility] Medical History (Updated 08/09/24 @ 16:21 by Chante Zelaya MD) History of blood transfusion Surgical History (Updated 08/09/24 @ 16:22 by Chante Zelaya MD) History of partial hysterectomy Family History Father Heart problem Mother No problems noted. 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 1. Little interest or pleasure in doing things: nearly every day 2. Feeling down, depressed, or hopeless: not at all 3. Trouble falling or staying asleep, or sleeping too much: not at all 4. Feeling tired or having little energy: not at all 5. Poor appetite or overeating: not at all 6. Feeling bad about yourself - or that you are a failure or have let yourself or your family down: not at all 7. Trouble concentrating on things, such as reading the newspaper or watching television: not at all 8. Moving or speaking so slowly that other people could have noticed. Or the opposite - being so fidgety or restless that you have been moving around a lot more than usual: not at all 9. Thoughts that you would be better off or of hurting yourself in some way: not at all Total score: 3 Depression Screening Interpretation: Negative Depression Screening Done: Yes 99891 - PHQ-9 Billing: Yes Source: Developed by Drs. Paramjit Ramirez, Shu Mendes, Mert Cid and colleagues, with an educational gerardo from [employer]. Thrive Questionnaire Date Thrive assessed: 08/09/24 I am a: Patient What is your living situation today?: I have a steady place to live Within the past 12 months, did the food you bought not last and you didn't have the money to get more?: I choose not to answer this question THRIVE Score: 0 KANIKA-7 AMB Questionnaire KANIKA-7 Date KANIKA - 7 assessed: 06/11/24 Source: Developed by Drs. Paramjit Ramirez, Shu Mendes, Mert Cid and colleagues, with an educational gerardo from [employer]. Review of Systems Const All systems reviewed & are unremarkable except as noted in HPI and below Eyes Reports no additional complaints ENT Reports no additional complaints Card Reports no additional complaints Resp Reports no additional complaints GI Reports no additional complaints Reports no additional complaints Physical exam (Primary Care) Vital Signs: Last Vital Signs Temp 97.9 F 08/09/24 14:21 Pulse 82 08/09/24 14:21 BP 112/76 08/09/24 14:21 Pulse Ox 98 08/09/24 14:21 BMI result Body Mass Index 22.3 Tobacco/Smoking Status: Tobacco use Status Tobacco use date assessed 06/11/24 08/09/24 14:23 Patient Tobacco Use Status Never used Tobacco 08/09/24 14:23 e-Cigarette/Vaping Use Never Used 08/09/24 14:23 PHQ-9: PHQ-9 Score PHQ-9: Total score 3 03/07/25 14:23 Depression Screening Interpretation: Negative Thrive Assessment: Date of Thrive Assessment Date Thrive assessed 08/09/24 08/09/24 14:23 Const General: no acute distress HENMT Head: Yes normal to inspection Eyes General: appearance normal, both eyes and all related structures Resp Effort & Inspection: normal respiratory effort Auscultation: clear to auscultation bilaterally Cardio Rhythm: regular rhythm Heart sounds: S1 normal heart sound present and S2 normal heart sound present GI Inspection: Yes normal to inspection Palpation (GI): Soft to palpation Percussion: Yes normal to percussion Auscultation: normal bowel sounds Coding Level of Care Code Est Pt Level 4 (80043) Diagnoses Hyperparathyroidism E21.3 Osteoporosis M81.0 Asthma J45.909 Sleep apnea G47.30 Hx of colonoscopy Z98.890 Additional Codes PHQ-9 - 69180 - PHQ-9 Billing: Yes ([id number]) Assessment & Plan Assessment & Plan (1) Hyperparathyroidism: Code(s): E21.3 - Hyperparathyroidism, unspecified Category: Medical Plan: Check blood work including PTH level referred to endocrinology (2) Osteoporosis: Comment: DEXA at [facility] 2022, f/u with Endo Code(s): M81.0 - Age-related osteoporosis without current pathological fracture Category: Medical Plan: Check DEXA report from [facility], referred to endocrinology (3) Asthma: Code(s): J45.909 - Unspecified asthma, uncomplicated Category: Medical Plan: Restart Symbicort and albuterol p.r.n. (4) Sleep apnea: Comment: severe sleep apnea 08/2022, pt will restart using a CPAP at home Code(s): G47.30 - Sleep apnea, unspecified Category: Medical Plan: Patient was advised to restart using a CPAP machine she has at home. (5) Hx of colonoscopy: Comment: normal, [facility] 2019, check records Code(s): Z98.890 - Other specified postprocedural states Category: Surgical Plan: Check report on a colonoscopy Orders: Orders Complete Blood Count Auto Diff Today E21.3 - Hyperparathyroidism, unspecified, J45.909 - Unspecified asthma, uncomplicated, Z00.00 - Encounter for general adult medical examination without abnormal findings Comprehensive [place]. Panel Fast Today E21.3 - Hyperparathyroidism, unspecified, J45.909 - Unspecified asthma, uncomplicated, Z00.00 - Encounter for general adult medical examination without abnormal findings Lipid Panel Today E21.3 - Hyperparathyroidism, unspecified, J45.909 - Unspecified asthma, uncomplicated, Z00.00 - Encounter for general adult medical examination without abnormal findings Vitamin D 25-OH Total Today E21.3 - Hyperparathyroidism, unspecified, J45.909 - Unspecified asthma, uncomplicated, Z00.00 - Encounter for general adult medical examination without abnormal findings UA w Microscopic Today E21.3 - Hyperparathyroidism, unspecified, J45.909 - Unspecified asthma, uncomplicated, Z00.00 - Encounter for general adult medical examination without abnormal findings Parathyroid Hormone Intact Today E21.3 - Hyperparathyroidism, unspecified, J45.909 - Unspecified asthma, uncomplicated, Z00.00 - Encounter for general adult medical examination without abnormal findings TSH reflex Free T4 Today E21.3 - Hyperparathyroidism, unspecified, J45.909 - Unspecified asthma, uncomplicated, Z00.00 - Encounter for general adult medical examination without abnormal findings Referrals Endocrinology Referral E21.3 - Hyperparathyroidism, unspecified Medications: New budesonide-formoterol 80-4.5 mcg/actuation (Symbicort) 2 puffs inhalation BID 10.2 grams 3RF montelukast 10 mg PO BEDTIME 90 tabs 3RF
[2024-08-09 14:21] VITALS: BP 112/76; PULSE 82; TEMP 36.6; O2SAT 98; BMI 22.3
== END 2024-08-09 15:47 | disposition home or self-care (01) ==
PROVIDERS: PCP Internal Medicine; Visit Provider Internal Medicine
DX: E21.3 Hyperparathyroidism, unspecified (principal); M81.0 Age-related osteoporosis without current pathological fracture; J45.909 Unspecified asthma, uncomplicated; G47.30 Sleep apnea, unspecified; Z98.890 Other specified postprocedural states

== ENCOUNTER → 2024-08-09 14:08 | Outpatient (BNVA) | payer OTHER, SELFPAY | PROVIDERS: PCP Internal Medicine; Visit Provider Internal Medicine | DX: E21.3 Hyperparathyroidism, unspecified (principal); M81.0 Age-related osteoporosis without current pathological fracture; J45.909 Unspecified asthma, uncomplicated; G47.30 Sleep apnea, unspecified; Z98.890 Other specified postprocedural states | CPT/HCPCS: 96127; 99212 ==

== ENCOUNTER 2024-08-13 08:14 | Outpatient (REF) | payer OTHER, SELFPAY ==
[2024-08-13 10:25] LABS: MANUAL DIFF FLAG NO
[2024-08-13 10:27] LABS: Basophils Percent Auto 0.4 % (0-2); Eosinophils Absolute Auto 0.2 X10*3/uL (0.0-0.4); Eosinophils Percent Auto 2.3 % (0-4); Hematocrit 43.4 % (37.0-47.0); Hemoglobin 13.5 g/dl (12.0-16.0); Imm Gran Abs Auto 0.03 X10*3/uL (0.00-0.03); Imm Gran Pct Auto 0.4 % (0.0-0.4); Lymphocytes Absolute Auto 2.5 X10*3/uL (1.2-4.9); Lymphocytes Percent Auto 32.2 % (20-40); Mean Corpuscular HGB Conc 31.1 g/dl (31.0-35.0); Mean Corpuscular Volume 83.6 fL (80.0-98.0); Mean Platelet Volume 9.3 fL (9.4-12.3); Monocytes Absolute Auto 0.4 X10*3/uL (0.1-1.2); Monocytes Percent Auto 5.5 % (2-11); Neutrophils Absolute Auto 4.6 x10*3/uL (2.0-8.3); Neutrophils Percent Auto 59.2 % (45-73); Platelet Count 359 X10*3/uL (160-400); Red Blood Count 5.19 X10*6/uL (4.20-5.50); Red Cell Distribution Width 12.9 % (11.0-16.0); White Blood Count 7.8 X10*3/uL (4.8-10.8)
[2024-08-13 10:50] LABS: Albumin Level 4.4 g/dL (3.5-5.0); Alkaline Phosphatase 111 U/L (39-117); Anion Gap 10 (12-20); Aspartate Amino Transferase 41 U/L (5-31); Bilirubin Total 0.3 mg/dL (0.0-1.0); Blood Urea Nitrogen 11 mg/dL (9-16); Calcium 10.3 mg/dL (8.4-10.2); Carbon Dioxide 28 mmol/L (22-29); Chloride 108 mmol/L (96-108); Cholesterol 168 mg/dL (<200); Estimated Glomerular Filt Rate > 60; Glucose Fasting 90 mg/dL (60-99); HDL Cholesterol 52 mg/dL (>40); LDL Cholesterol Calculated 92 mg/dL (<100); Potassium 4.2 mmol/L (3.3-5.1); Sodium 142 mmol/L (135-145); Total Protein 8.3 g/dL (6.5-8.0); Triglycerides 124 mg/dL (<150)
[2024-08-13 10:51] LABS: Parathyroid Hormone Intact 146.1 pg/mL (8.7-77.1)
[2024-08-13 11:03] LABS: Alanine Aminotransferase 38 U/L (0-31); TSH reflex Free T4 1.15 uIU/mL (0.32-4.0); Vitamin D 25-OH Total 13.8 ng/mL (>30)
== END 2024-08-13 08:15 | disposition home or self-care (01) ==
LOC: HO.HMGCLDS 08:14
PROVIDERS: PCP Internal Medicine; Visit Provider Internal Medicine
DX: Z00.00 Encounter for general adult medical examination without abnormal findings (principal); J45.909 Unspecified asthma, uncomplicated; E21.3 Hyperparathyroidism, unspecified
CPT/HCPCS: 36415; 80053; 80061; 82306; 83970; 84443; 85025

== ENCOUNTER 2024-08-14 06:32 | Outpatient (REF) | payer OTHER, SELFPAY ==
[2024-08-14 11:01] LABS: Appearance Urine Clear; Color Urine Yellow; Glucose Urine UA Negative (Negative); Leukocyte Esterase Urine Trace (Negative); Nitrite Urine Negative (Negative); PH 6.5 (5.0-9.0); Specific Gravity - Urine 1.015 (1.005-1.025); UMIC TRIGGER UA YES; Urine Blood Negative (Negative); Urine Ketones Negative (Negative); Urine Protein Negative (Neg-Trace)
[2024-08-14 11:05] LABS: Bacteria Urine None Seen (None Seen); Hyaline Casts Urine 0-2 /LPF (0-2); RBC Urine 0-2 /HPF (0-2); Squamous Epithelial Cell Urine 0-2 /HPF (0-2); WBC Urine 0-5 /HPF (0-5)
== END 2024-08-14 06:33 | disposition home or self-care (01) ==
LOC: HO.HMGCLNP 06:32
PROVIDERS: PCP Internal Medicine; Visit Provider Internal Medicine
DX: Z00.00 Encounter for general adult medical examination without abnormal findings (principal); E21.3 Hyperparathyroidism, unspecified; J45.909 Unspecified asthma, uncomplicated
CPT/HCPCS: 81001

== ENCOUNTER 2024-09-30 13:28 | Outpatient (AMB) | payer OTHER, SELFPAY ==
--- NOTE | 2024-09-30 13:31 | MHC.OFFVIS ---
Vital Signs 09/30/24 13:32 Height 5 ft 2 in BP 118/74 Blood Pressure Location Lt brachial Position Sitting Pulse 76 Pulse Source Pulse Oximeter Pulse Oximetry (%) 96 Oxygen Delivery Method Room Air Intake Visit Reasons: Hyperparathyroidism Intake Note: Patient present today for Hyperparathyroidism. 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 Chart review shows that she has had elevated calcium levels at least since October 2021 where calcium levels have ranged anywhere from 10.1-11.6. Highest calcium level was July 2023 when it was 11.6 with a an albumin of 4.4, corrected calcium would be 11.2. Most recent labs from 08/13/2024 showed calcium of 10.3, albumin of 4.4, corrected calcium would be 10.1. Normal kidney function. Vitamin-D was low at 13.8. Normal thyroid function. PTH was elevated at 146.1. 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 Miller., no DEXA records in our chart. No family history of kidney stones or calcium problems Vitamin D supplements : [employer] unsure of dose 1000 units? 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 Physical exam General: sitting comfortably in no acute distress HEENT: normocephalic/atraumatic, Neck: supple Cardiac: normal heart sounds Pulm: normal breath sounds B/L, no added breath sounds Abd: not distended, no tenderness Extremities: no edema, no signs of myxedema Neuro: AAO x3, Speech: normal, no facial droop, moving all 4 extremities Laboratory Tests 10/05/21 08/06/22 07/14/23 19:48 22:45 14:42 Creatinine Estimated GFR Calcium 10.9 H 10.1 D 11.6 H D Albumin 4.3 4.4 25-OH Vitamin D Total TSH PTH Intact 08/13/24 08:18 Creatinine 0.73 Estimated GFR > 60 Calcium 10.3 H D Albumin 4.4 25-OH Vitamin D Total 13.8 L TSH 1.15 PTH Intact 146.1 H [facility] Medical History History of blood transfusion Surgical History History of partial hysterectomy Family History Father Heart problem Mother No problems noted. 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 Per patient she was previously following with [facility] endocrinology, for hyperparathyroidism and osteoporosis, however had to change providers due to insurance changes. I do not have any available records from her prior endocrinology office visits. Chart review shows that she has had elevated calcium levels at least since October 2021 where calcium levels have ranged anywhere from 10.1-11.6. Highest calcium level was July 2023 when it was 11.6 with a an albumin of 4.4, corrected calcium would be 11.2. Most recent labs from 08/13/2024 showed calcium of 10.3, albumin of 4.4, corrected calcium would be 10.1. Normal kidney function. Vitamin-D was low at 13.8. Normal thyroid function. PTH was elevated at 146.1. If indeed she has osteoporosis in the setting of hyperparathyroidism with prior history of kidney stones, she would qualify for surgery and I will refer her to ENT surgeon in [place], her insurance is not accepted at [facility]. We will obtain these records. Her vitamin-D level was low at 13.8 from August 2024, she has started taking vitamin-D but she is unsure of the dose and she has only been taking it 2 to 3 times a week. I discussed with her importance of taking vitamin-D regularly S PTH could also be elevated in the setting of vitamin-D deficiency. Otherwise kidney function is normal, given calcium levels let some 0.4 as high as 11.6 with a corrected calcium of 11.2 in 2023, this would be consistent with primary hyperparathyroidism most likely. It would be important though to rule out FHH. We will obtain 24 hour urine calcium levels. She does have a very poor nutritional intake of calcium so 24 hour urine calcium could be falsely low in that setting as well so I have asked her to bump up her calcium intake to 1000 mg daily with diet, and stay away from calcium supplements and after 6 weeks of doing good calcium intake and being consistent with vitamin-D to repeat all her labs along with 24 hour urine levels. Plan: -obtain records from prior endo office visit notes as well as bone density records -vitamin-D [id number] units daily (bring bottles to next visit) -calcium intake in diet 1000 mg daily, given a list of foods to incorporate high calcium intake in diet, -after 6 weeks of regularly taking calcium in diet and vitamin-D supplementation, do blood work and 24 hour urine test -maintain good hydration (2) Osteoporosis: Comment: DEXA at [facility] 2022, f/u with Endo Code(s): M81.0 - Age-related osteoporosis without current pathological fracture Category: Medical Qualifiers: Osteoporosis type: other Presence of current pathological fracture: without current pathological fracture Qualified Code(s): M81.8 - Other osteoporosis without current pathological fracture Plan: See above Plan I spent 45 minutes in reviewing the record, seeing the patient and documenting in the medical record. Orders: Orders Calcium Today E21.3 - Hyperparathyroidism, unspecified, M81.0 - Age-related osteoporosis without current pathological fracture Calcium, Ionized Today E21.3 - Hyperparathyroidism, unspecified, M81.0 - Age-related osteoporosis without current pathological fracture Phosphorus Today E21.3 - Hyperparathyroidism, unspecified, M81.0 - Age-related osteoporosis without current pathological fracture Vitamin D 25-OH Total Today E21.3 - Hyperparathyroidism, unspecified, M81.0 - Age-related osteoporosis without current pathological fracture Calcium, 24 Hr Ur Today E21.3 - Hyperparathyroidism, unspecified, M81.0 - Age-related osteoporosis without current pathological fracture Albumin Level Today E21.3 - Hyperparathyroidism, unspecified, M81.0 - Age-related osteoporosis without current pathological fracture Parathyroid Hormone Intact Today E21.3 - Hyperparathyroidism, unspecified, M81.0 - Age-related osteoporosis without current pathological fracture Magnesium Today E21.3 - Hyperparathyroidism, unspecified, M81.0 - Age-related osteoporosis without current pathological fracture Creatinine, 24 Hr Group Today E21.3 - Hyperparathyroidism, unspecified, M81.0 - Age-related osteoporosis without current pathological fracture Creatinine Today E21.3 - Hyperparathyroidism, unspecified, M81.0 - Age-related osteoporosis without current pathological fracture Patient Instructions: Increase calcium intake in food to 1000 mg daily ( milk , fortified almond milk, fortified cereals, tofu set in calcium, broccoli, kale, yogurt, cottage cheese, mozarella cheese , collards, canned salmon with bones , fortified organge juice ) continue vitamin D supplements, bring bottle to next visit , you should be taking around 1000 to 2000 units daily After 6 weeks of doing this , do 24 hr urine collection plus have blood drawn the same day as you hand in the urine 24 hr urine collection instructions You have been asked to collect your urine for 24 hours to assess for calcium excretion. You must choose a 24 hour period of time when you will be home. The morning of the first day, DISCARD the FIRST morning void and then note the time. You will collect every single void from then on for 24 hours. For example, if you wake up at 6am and urinate, flush down that void. You will then collect every drop of urine all day and all night through 6am the following day. You will urinate one last time at 6am for the collection. The jug of urine must be kept in the refrigerator until you bring it to the lab. Follow up in 8 weeks to ted results Maintain good hydration Walking 30 mins 5 days a week builds good bone stay away from any calcium supplements Coding Level of Care Code New Pt Level 4 (77654) Diagnoses Hyperparathyroidism E21.3 Other osteoporosis without current pathological fracture M81.8 Osteoporosis type: other Presence of current pathological fracture: without current pathological fracture Time Spent (min) 45
[2024-09-30 13:32] VITALS: BP 118/74; PULSE 76; O2SAT 96
== END 2024-09-30 14:02 | disposition home or self-care (01) ==
LOC: HO.ENCR 13:29
PROVIDERS: PCP Internal Medicine; Visit Provider Student in an Organized Health Care Education/Training Program
DX: E21.3 Hyperparathyroidism, unspecified (principal); M81.8 Other osteoporosis without current pathological fracture
CPT/HCPCS: 99204

== ENCOUNTER → 2024-09-30 13:28 | Outpatient (BNVA) | payer OTHER, SELFPAY | PROVIDERS: PCP Internal Medicine; Visit Provider Student in an Organized Health Care Education/Training Program | DX: E21.3 Hyperparathyroidism, unspecified (principal); M81.8 Other osteoporosis without current pathological fracture | CPT/HCPCS: 99202 ==

== ENCOUNTER 2024-10-09 16:06 | Outpatient (AMB) | payer OTHER, SELFPAY ==
--- NOTE | 2024-10-09 16:12 | MHC.OFFWIV ---
Intake Vital Signs 10/09/24 16:15 Weight 122 lb BP 180/90 H Blood Pressure Location Rt brachial Position Sitting Pulse 117 H Pulse Source Pulse Oximeter Pulse Oximetry (%) 98 Oxygen Delivery Method Room Air Intake Visit Reasons: EP- BP has been really high Intake Note: Patient here for elevated BP and headaches that started this morning. Patient Tobacco Use Status: Never used Tobacco Allergies Androgenic Anabolic Steroid Allergy (Verified 10/09/24 16:15) very high BP, palpitations Do you need a note to return to daycare/school/sports/work: No HPI HPI Comments History of Present Illness Details Patient is a 59yo F who presents to office with high blood pressure readings She has a hx of elevated BP without diagnosis of HTN but said it was controlled and was not on medicine for it She hasnt been on for approx 1-1.5 years Noticed today her BP was elevated She said she was feeling slightly dizzy and felt palpitations with headaches Lasted approx 3 hours this am Pt said symptoms since last night + congestion She has not been taking any OTC medicine She denies current dizziness but said she feels anxious Pt said she had some CP/SOB earlier today Said on way here she felt L sided chest discomfort; none currently Minimal cough per patient Got over the flu 2 weeks ago No syncope or LOC No nausea or vomiting She denies heart issues; she said father had heart issues [facility] Medical History History of blood transfusion Surgical History History of partial hysterectomy Family History Father Heart problem Mother No problems noted. 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 Housing: Apartment Alcohol intake: never Patient Tobacco Use Status: Never used Tobacco e-Cigarette/Vaping Use: Never Used service: No Current occupational status: employed Cognitive needs: No Hearing needs: Yes Vision needs: No Review of Systems Const Denies chills, Denies fever(s) and Reports headache(s) Eyes Denies change in vision ENT Reports dizziness, Denies otalgia, Reports headache(s) and Denies sore throat Card Reports chest pain, Denies syncope, Reports rapid heart rate and Reports dyspnea Resp Denies cough and Reports dyspnea GI Denies nausea and Denies vomiting Skin/Breast Denies rash Neuro Denies confusion, Reports dizziness, Denies syncope and Reports headache(s) Psych Denies confusion Physical Exam Vital Signs: Last Vital Signs Pulse 117 H 10/09/24 16:15 BP 180/90 H 10/09/24 16:15 Pulse Ox 98 10/09/24 16:15 Oxygen Delivery Method Room Air 10/09/24 16:15 General: Non-toxic,. Speaking full sentences. Seems slightly anxious Skin: Warm dry throughout Eye: EOMI, PERRL HENT: Airway patent. Uvula midline. No pharyngeal erythema or edema. No ENGINEER REMOTE CONTROL DIESEL. Bilateral canals clear. TM non-erythematous, non-bulging. No TM perforation or hemotympanum noted. Respiratory: CTA bilaterally. No wheezes, rales or rhonchi Cardiac: RRR. Neurology: A/O x 3. CN 2-12 grossly intact. 5/5 account services coordinator strength. No aphasia or facial droop. Gait without abnormality Psych: Good mood and affect Const General: No confusion Orientation/consciousness: No confusion Neuro General: No confusion Assessment & Plan Assessment & Plan (1) Elevated BP without diagnosis of hypertension: Code(s): R03.0 - Elevated blood-pressure reading, without diagnosis of hypertension Plan: See below (2) Chest pain: Code(s): R07.9 - Chest pain, unspecified Qualifiers: Chest pain type: unspecified Qualified Code(s): R07.9 - Chest pain, unspecified Plan: Patient seen and evaluated. EKG: sinus tach at 106bpm. Inverted t waves in III, aVF, V1 which was not present in 2022 from EKG on file I discussed with pt due to her symptoms, vital signs and changes on EKG she needs to go to ER for evaluation She refused ambulance Expect called to [facility] Patient gave verbal understanding and had no additional questions or concerns at time of discharge All questions answered Coding Level of Care Code Est Pt Level 4 (92896) Diagnoses Elevated BP without diagnosis of hypertension R03.0 Chest pain, unspecified type R07.9 Chest pain type: unspecified
[2024-10-09 16:15] VITALS: BP 180/90; PULSE 117; O2SAT 98
== END 2024-10-09 16:47 | disposition home or self-care (01) ==
PROVIDERS: PCP Internal Medicine; Visit Provider Physician Assistant
DX: R03.0 Elevated blood-pressure reading, without diagnosis of hypertension (principal); R07.9 Chest pain, unspecified

== ENCOUNTER → 2024-10-09 16:06 | Outpatient (BNVA) | payer OTHER, SELFPAY | PROVIDERS: PCP Internal Medicine; Visit Provider Physician Assistant | DX: R03.0 Elevated blood-pressure reading, without diagnosis of hypertension (principal); R07.9 Chest pain, unspecified | CPT/HCPCS: 93005; 99212 ==

== ENCOUNTER 2024-10-09 17:32 | Emergency (ER) | payer OTHER, SELFPAY ==
[2024-10-09 17:50] VITALS: BP 151/88; PULSE 97; RESP 18; TEMP 36.9; O2SAT 99; BMI 21.9
--- NOTE | 2024-10-09 17:50 | ED.GENADULT ---
HPI - General Adult General Chief complaint: General Medical Stated complaint: high blood pressure, referred from Time Seen by Provider: 10/09/24 21:18 History of Present Illness ED Provider: Consuelo CARRERA narrative: The patient is a 59-year-old woman who has a history of having been on antihypertensive medication in the past. She says that over a year ago her blood pressures seemed well without medications and she was taken off her blood pressure medicines. She has since followed up with a new primary care doctor. At her PCP appointment on 06/11/2024 her blood pressure was 110/78. The patient has also been found to have elevated calcium levels and has been seeing an casino slot supervisor regarding possible hyperparathyroidism. The patient says that today she felt dizzy. 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 At around 09:00 she was at work where there was a blood pressure cuff and she took her blood pressure and it was 190. She says that she had a headache at that time that she felt was typical to headaches she has had with high blood pressure readings in the past. She also felt somewhat dizzy. She had waxing and waning symptoms throughout the day. She says that she checked her blood pressure several times throughout the day and that her blood pressure seemed to be going up and down. No chest pain. Ultimately after work she went to urgent care and was referred to the emergency room. She denies any acute illness over the last several days. She has not had any fever, sweats, chills. She can not think of anything else that might have triggered change in her condition. No significant chest pain or shortness of breath. No abdominal pain, nausea, vomiting. Related Data Previous Rx's ?Medication ?Instructions ?Recorded albuterol sulfate 90 mcg/actuation 2 puff inhalation Q6H PRN 06/11/24 aerosol inhaler shortness of breath or wheezing #8.5 grams budesonide-formoterol HFA 80 2 puff inhalation BID #10.2 grams 08/09/24 mcg-4.5 mcg/actuation aerosol inhaler (Symbicort) montelukast 10 mg tablet 10 mg PO BEDTIME #90 tabs 08/09/24 lisinopril 5 mg tablet 5 mg PO DAILY #30 tabs 10/09/24 Allergies Allergy/AdvReac Type Severity Reaction Status Date / Time Androgenic Anabolic Steroid Allergy very high Verified 10/09/24 17:51 BP, palpitations Review of Systems Review of Systems: Yes all other systems are reviewed and are negative [facility] Past Medical History Medical History History of blood transfusion Surgical History History of partial hysterectomy Family History Family History Father Heart problem Mother No problems noted. 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 Housing: Apartment Unable to assess alcohol history related to: Unknown Alcohol intake: never Patient Tobacco Use Status: Never used Tobacco e-Cigarette/Vaping Use: Never Used Use of substances other than those prescribed or required for medical reasons: Unknown Advance Directives: No Advance Directives Information Provided: Yes Patient : No service: No Current occupational status: employed Cognitive needs: No Hearing needs: Yes Vision needs: No Physical Exam ED Vital Signs: Vital Signs - 24 hr 10/09/24 17:50 10/09/24 21:35 10/09/24 21:36 Temperature 98.4 F 98.1 F Pulse Rate 97 82 Respiratory Rate 18 16 Blood Pressure 151/88 H 150/94 H 150/94 H Pulse Oximetry 99 Oxygen Delivery Method Room Air Room Air 10/09/24 21:39 Temperature 98.1 F Pulse Rate 82 Respiratory Rate 16 Blood Pressure 150/94 H Pulse Oximetry Oxygen Delivery Method Room Air BMI result Body Mass Index 21.9 Const Other: The patient is awake, alert, pleasant, cooperative. She looks younger than her age. She does not seem in any distress. She looks well. HENMT Other: Face is symmetrical. Mucous membranes moist. Eyes Other: Pupils are round equal, conjunctivae are clear, extraocular movements are intact Neck Other: the neck is normal to inspection. No swelling. The neck is entirely supple. She can touch her chin to her chest very easily without any discomfort whatsoever. Resp Effort & Inspection: normal respiratory effort Auscultation: clear to auscultation bilaterally Cardio Rate: regular rate Rhythm: regular rhythm Heart sounds: S1 normal heart sound present and S2 normal heart sound present GI Other: The abdomen is soft and nontender Skin Other: the skin is dry and unremarkable Neuro Other: the patient is awake and alert with a normal mental status. Cranial nerves 2-12 are intact. She is moving her extremities normally and appropriately. She seems neurologically intact. Extrem Other: No peripheral edema. No calf swelling or tenderness. No asymmetry. Course Course Course Narrative: This is a Rapid Medical Exam performed in triage by Catherine Garcia PA-C. Full HPI, ROS and PE to be performed by primary ED provider. 59 yo with PMHx of HTN, asthma, presenting to the ED c/o coming from due to elevated BP. States BP was in the 190s at home this morning and 180s at . Patient states she is supposed to be on HTN medications but has not been on medications for approximately 1 year. States she went to today due mild dizziness, and headache which is abnormal for her. Denies CP, SOB, nausea, vomiting, visual changes, fever. PE: BP in triage is 151/88. No neurological deficits. No ataxic gait. Plan: EKG, labs, viral swabs Medications Administered Discontinued Medications Generic Name Dose Route Start Last Admin Trade Name Freq PRN Reason Stop Dose Admin Lisinopril 5 mg 10/09/24 21:29 10/09/24 21:35 Lisinopril 5 Mg Tablet PO 10/09/24 21:30 5 mg ONCE ONE Administration Protocol Medical Decision Making Medical Decision Making [facility] Narrative: The patient is a 59-year-old female who has not felt well during the day today and has a apparently had several high blood pressure readings. Overall she says that her blood pressures has been labile throughout the day today. She has a history of having been on lisinopril in the past but has not been on any antihypertensives recently. She is currently also being evaluated for a possible parathyroid problem. the patient is not describing any symptoms that sound concerning from the point of view of a possible hypertensive emergency. I do not think her EKG shows any concerning findings. Labs are unremarkable including an undetectable troponin. Renal function is unremarkable. At the time that I saw the patient her blood pressure was 150/94. I thought she looked well. I do not think she will require hospitalization or further evaluation in the emergency room. I will prescribe 5 mg of lisinopril daily which she has taken in the past. She should follow up with her PCP. She should return if she feels worse. Lab Data 10/09/24 18:07 10/09/24 18:07 Labs: Lab Results 10/09/24 Range/Units 18:07 WBC 8.6 (4.8-10.8) X10*3/uL RBC 4.87 (4.20-5.50) X10*6/uL Hgb 13.0 (12.0-16.0) g/dl Hct 39.6 (37.0-47.0) % MCV 81.3 (80.0-98.0) fL MCH 26.7 L (27.0-33.0) pg MCHC 32.8 (31.0-35.0) g/dl RDW 12.6 (11.0-16.0) % Plt Count 408 H (160-400) X10*3/uL MPV 8.7 L (9.4-12.3) fL Immature Gran % (Auto) 0.4 (0.0-0.4) % Neut % (Auto) 59.3 (45-73) % Lymph % (Auto) 31.9 (20-40) % Coryell % (Auto) 6.5 (2-11) % Eos % (Auto) 1.5 (0-4) % Baso % (Auto) 0.4 (0-2) % Lymph # (Auto) 2.7 (1.2-4.9) X10*3/uL Coryell # (Auto) 0.6 (0.1-1.2) X10*3/uL Eos # (Auto) 0.1 (0.0-0.4) X10*3/uL Baso # (Auto) 0.0 (0.0-0.2) X10*3/uL Abs Immat Gran (auto) 0.03 (0.00-0.03) X10*3/uL Absolute Neuts (auto) 5.1 (2.0-8.3) x10*3/uL Absolute Nucleated RBC 0.000 (0.0-0.012) X10*3/uL Nucleated RBC % (auto) 0.0 (0.0-0.2) /100WBC Sodium 140 (135-145) mmol/L Potassium 4.2 (3.3-5.1) mmol/L Chloride 104 (96-108) mmol/L Carbon Dioxide 29 (22-29) mmol/L Anion Gap 11 L (12-20) BUN 14 (9-16) mg/dL Creatinine 0.77 (0.5-1.4) mg/dL Estim Creat Clear Calc 63.0 Estimated GFR > 60 Random Glucose 93 (60-115) mg/dL Calcium 11.3 H D (8.4-10.2) mg/dL Magnesium 1.9 (1.6-2.6) mg/dL Total Bilirubin 0.3 (0.0-1.0) mg/dL Direct Bilirubin 0.1 (0.0-0.5) mg/dL AST 22 (5-31) U/L ALT 35 H (0-31) U/L Alkaline Phosphatase 105 (39-117) U/L Troponin I High Sens < 2.7 (<3.5-17.0) ng/L Total Protein 8.1 H (6.5-8.0) g/dL Albumin 4.6 (3.5-5.0) g/dL Independent Interpretation I performed an independent interpretation of an: EKG Interpretation: EKG at 17:59 shows normal sinus rhythm at 86 beats per minute. There are nonspecific changes in the anterior leads but no definite acute ischemic changes. No definite concerning ischemic changes from previous. Discharge Plan Discharge Clinical Impression: Hypertension Patient Disposition: Home, Self-Care Instructions: Hypertension (ED) Additional Instructions: I have sent a prescription for the blood pressure medication lisinopril to your pharmacy. This is the same medication you were previously on at the same dose. Please take this once a day. Please contact your regular doctor's office in the morning to make a follow up appointment in the next couple of weeks to discuss your blood pressure and your symptoms. If at any point you feel significantly worse before you follow up with your regular doctor please return to the emergency room for additional evaluation here. Prescriptions: New lisinopril 5 mg tablet 5 mg PO DAILY Qty: 30 0RF No Action albuterol sulfate 90 mcg/actuation HFA aerosol inhaler 2 puff inhalation Q6H PRN (Reason: shortness of breath or wheezing) Qty: 8.5 3RF budesonide-formoterol [Symbicort] 80-4.5 mcg/actuation HFA aerosol inhaler 2 puff inhalation BID Qty: 10.2 3RF montelukast 10 mg tablet 10 mg PO BEDTIME Qty: 90 3RF Referrals: Chante Zelaya MD [Primary Care Provider] - ( hypertension) Interventions: ED Discharge Assessment Last Done: 10/09/24 21:39 Discharge Date/Time: 10/09/24 21:40 Print Language: [place] Citizen
--- NOTE | 2024-10-09 17:53 | ECG_ITS ---
Test Reason : HYPERTENSION Blood Pressure : */* mmHG Vent. Rate : 86 BPM Atrial Rate : 86 BPM P-R Int : 170 ms QRS Dur : 88 ms QT Int : 342 ms P-R-T Axes : 74 85 77 degrees QTcB Int : 409 ms Normal sinus rhythm Normal ECG When compared with ECG of 14-Jul-2023 14:32, No significant changes seen Referred By: Catherine Garcia Electronically Signed By: HOLLY SOLO
--- NOTE | 2024-10-09 18:09 | MHC.EDTECH ---
pt refused sars swab
[2024-10-09 18:10] LABS: MANUAL DIFF FLAG NO
[2024-10-09 18:13] LABS: Basophils Percent Auto 0.4 % (0-2); Eosinophils Absolute Auto 0.1 X10*3/uL (0.0-0.4); Eosinophils Percent Auto 1.5 % (0-4); Hematocrit 39.6 % (37.0-47.0); Imm Gran Abs Auto 0.03 X10*3/uL (0.00-0.03); Imm Gran Pct Auto 0.4 % (0.0-0.4); Lymphocytes Absolute Auto 2.7 X10*3/uL (1.2-4.9); Lymphocytes Percent Auto 31.9 % (20-40); Mean Corpuscular HGB Conc 32.8 g/dl (31.0-35.0); Mean Corpuscular Hemoglobin 26.7 pg (27.0-33.0); Mean Corpuscular Volume 81.3 fL (80.0-98.0); Mean Platelet Volume 8.7 fL (9.4-12.3); Monocytes Absolute Auto 0.6 X10*3/uL (0.1-1.2); Monocytes Percent Auto 6.5 % (2-11); Neutrophils Absolute Auto 5.1 x10*3/uL (2.0-8.3); Neutrophils Percent Auto 59.3 % (45-73); Platelet Count 408 X10*3/uL (160-400); Red Blood Count 4.87 X10*6/uL (4.20-5.50); Red Cell Distribution Width 12.6 % (11.0-16.0); White Blood Count 8.6 X10*3/uL (4.8-10.8)
[2024-10-09 18:26] LABS: Alanine Aminotransferase 35 U/L (0-31); Albumin Level 4.6 g/dL (3.5-5.0); Alkaline Phosphatase 105 U/L (39-117); Anion Gap 11 (12-20); Aspartate Amino Transferase 22 U/L (5-31); Bilirubin Direct 0.1 mg/dL (0.0-0.5); Bilirubin Total 0.3 mg/dL (0.0-1.0); Blood Urea Nitrogen 14 mg/dL (9-16); Calcium 11.3 mg/dL (8.4-10.2); Carbon Dioxide 29 mmol/L (22-29); Chloride 104 mmol/L (96-108); Estimated Glomerular Filt Rate > 60; Glucose Random 93 mg/dL (60-115); Magnesium 1.9 mg/dL (1.6-2.6); Potassium 4.2 mmol/L (3.3-5.1); Sodium 140 mmol/L (135-145); Total Protein 8.1 g/dL (6.5-8.0)
[2024-10-09 18:36] LABS: Troponin-I High Sensitivity < 2.7 ng/L (<3.5-17.0)
[2024-10-09 21:35] VITALS: BP 150/94
[2024-10-09] MEDS: lisinopriL 5 MG TABLET PO (21:35)
[2024-10-09 21:36] VITALS: BP 150/94; PULSE 82; RESP 16; TEMP 36.7
[2024-10-09 21:39] VITALS: BP 150/94; PULSE 82; RESP 16; TEMP 36.7
== END 2024-10-09 21:40 | disposition home or self-care (01) ==
PROVIDERS: Physician Assistant; Emergency Provider Emergency Medicine; PCP Internal Medicine
DX: R42 Dizziness and giddiness (principal); R51.9 Headache, unspecified; I10 Essential (primary) hypertension; Z79.899 Other long term (current) drug therapy
CPT/HCPCS: 80048; 80076; 83735; 84484; 85025; 93005; 99283; 99284

== ENCOUNTER → 2024-10-09 17:53 | Outpatient (BNV) | payer OTHER, SELFPAY | PROVIDERS: Emergency Provider Emergency Medicine; PCP Internal Medicine; Visit Provider Internal Medicine | DX: I10 Essential (primary) hypertension (principal) | CPT/HCPCS: 93010 ==

== ENCOUNTER 2024-11-04 13:14 | Outpatient (AMB) | payer OTHER, SELFPAY ==
--- NOTE | 2024-11-04 13:16 | A.OFFPC_ITS ---
Vital Signs 11/04/24 13:17 Height 5 ft 2 in Weight 120 lb 6 oz BMI 22.0 BP 118/86 Blood Pressure Location Lt brachial Position Sitting Pulse 81 Pulse Source Pulse Oximeter Temp 98.4 F Temp Source Oral Pulse Oximetry (%) 99 Oxygen Delivery Method Room Air Intake Visit Reasons: ED f/u Allergies Androgenic Anabolic Steroid Allergy (Verified 11/04/24 13:17) very high BP, palpitations Medication List - Last Reconciled 11/04/24 by Chante Zelaya MD albuterol sulfate 90 mcg/actuation 2 puffs inhalation Q6H PRN aspirin ([place]idan Low Dose Aspirin) 81 mg PO DAILY biotin (Roel Biotin) mcg PO budesonide-formoterol 80-4.5 mcg/actuation (Symbicort) 2 puffs inhalation BID cholecalciferol (vitamin D3) 50 mcg PO DAILY lisinopril 5 mg PO DAILY montelukast 10 mg PO BEDTIME zinc gluconate 50 mg PO DAILY Tobacco use date assessed: 11/04/24 Dental Screening Dental Screen Date: 11/04/24 Did you have a dental visit in the last 12 months?: Yes Did you have a dental problem in the last 6 months where you did not have access to dental care?: No Was dental information given to patient?: Patient has dentist HPI ED f/u HPI Details Pt presents for follow-up of ER visit for elevated blood pressure. Patient is started taking lisinopril and her blood pressure improved. She complains of chronic postnasal drip difficulty swallowing and chronic dry cough. Patient had EGD and esophageal dilatation but it did not help her symptoms. Patient complains of severe headache in the back of her head started 2 days ago. She denies any change in the vision nausea vomiting fever chills weakness or numbness in extremities [facility] Medical History (Updated 11/04/24 @ 14:17 by Chante Zelaya MD) Hypertension Hyperparathyroidism Schatzki's ring Seasonal allergies New onset headache History of blood transfusion Surgical History History of partial hysterectomy Family History Father Heart problem Mother No problems noted. 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 1. Little interest or pleasure in doing things: nearly every day 2. Feeling down, depressed, or hopeless: not at all 3. Trouble falling or staying asleep, or sleeping too much: not at all 4. Feeling tired or having little energy: not at all 5. Poor appetite or overeating: not at all 6. Feeling bad about yourself - or that you are a failure or have let yourself or your family down: not at all 7. Trouble concentrating on things, such as reading the newspaper or watching television: not at all 8. Moving or speaking so slowly that other people could have noticed. Or the opposite - being so fidgety or restless that you have been moving around a lot more than usual: not at all 9. Thoughts that you would be better off or of hurting yourself in some way: not at all Total score: 3 Depression Screening Interpretation: Negative Depression Screening Done: Yes 44031 - PHQ-9 Billing: Yes Source: Developed by Drs. Paramjit Ramirez, Shu Mendes, Mert Cid and colleagues, with an educational gerardo from [employer]. Thrive Questionnaire Date Thrive assessed: 11/04/24 I am a: Patient What is your living situation today?: I have a steady place to live Within the past 12 months, did the food you bought not last and you didn't have the money to get more?: I choose not to answer this question Within the past 12 months, did you worry whether your food would run out before you got money to buy more?: I choose not to answer this question Do you have trouble paying for medicines?: I choose not to answer this question Do you have trouble getting transportation to medical appointments?: I choose not to answer this question Do you have trouble paying your heating and electricity bill?: I choose not to answer this question Do you have trouble taking care of your child, family member or friend?: I choose not to answer this question Do you have trouble with day-to-day activities such as bathing, preparing meals, shopping, managing finances, etc.?: I choose not to answer this question Are you currently unemployed and looking for a job?: I choose not to answer this question Are you interested in more education?: I choose not to answer this question THRIVE Score: 0 AUDIT C Alcohol Use Questionnaire (AUDIT-C) 1. How often do you have a drink containing alcohol?: Never 3. How often do you have six or more drinks on one occasion?: Never Total Score: 0 KANIKA-7 AMB Questionnaire KANIKA-7 Date KANIKA - 7 assessed: 11/04/24 Feeling nervous, anxious, or on edge: 1 = Several days Not being able to stop or control worryin = Several days Worrying too much about different things: 1 = Several days Trouble relaxin = Several days Being so restless that it is hard to sit still: 1 = Several days Becoming easily annoyed or irritable: 1 = Several days Feeling afraid as if something awful might happen: 0 = Not at all Total KANIKA-7 score (0-4 normal; 5-9 mild; 10-14 moderate; 15-21 severe): 6 Source: Developed by Drs. Paramjit Ramirez, Shu Mendes, Mert Cid and colleagues, with an educational gerardo from [employer]. KANIKA-7 Assessment Billing KANIKA-7 Assessment Tool: KANIKA-7 Assessment 99926 Review of Systems Const All systems reviewed & are unremarkable except as noted in HPI and below Eyes Reports no additional complaints ENT Reports no additional complaints Card Reports no additional complaints Resp Reports no additional complaints GI Reports no additional complaints Reports no additional complaints Physical exam (Primary Care) Vital Signs: Last Vital Signs Temp 98.4 F 11/04/24 13:17 Pulse 81 11/04/24 13:17 BP 118/86 11/04/24 13:17 Pulse Ox 99 11/04/24 13:17 Oxygen Delivery Method Room Air 11/04/24 13:17 BMI result Body Mass Index 22.0 Tobacco/Smoking Status: Tobacco use Status Tobacco use date assessed 11/04/24 11/04/24 13:18 Patient Tobacco Use Status Never used Tobacco 11/04/24 13:18 e-Cigarette/Vaping Use Never Used 11/04/24 13:18 PHQ-9: PHQ-9 Score PHQ-9: Total score 3 11/04/24 13:18 Depression Screening Interpretation: Negative Thrive Assessment: Date of Thrive Assessment Date Thrive assessed 11/04/24 11/04/24 13:18 Const General: no acute distress HENMT Head: Yes normal to inspection Face and sinus: Yes normal facial exam Mouth: Normal oral and palatal mucosa present Throat: Yes posterior oropharynx normal Eyes General: appearance normal, both eyes and all related structures Resp Effort & Inspection: normal respiratory effort Auscultation: clear to auscultation bilaterally Cardio Rhythm: regular rhythm Heart sounds: S1 normal heart sound present and S2 normal heart sound present GI Inspection: Yes normal to inspection Palpation (GI): Soft to palpation Percussion: Yes normal to percussion Auscultation: normal bowel sounds Neuro Cranial nerves: Yes CN's II-XII intact bilaterally Gait exam (Neuro): Normal gait present Motor exam (neuro): 5/5 motor strength present throughout Romberg Test: Negative Coding Level of Care Code Est Pt Level 4 (28352) Diagnoses Seasonal allergies J30.2 New onset headache R51.9 Hypertension I10 Postnasal drip R09.82 Additional Codes KANIKA-7 Assessment Billing - KANIKA-7 Assessment Tool: KANIKA-7 Assessment 41403 ([id number]) PHQ-9 - 22696 - PHQ-9 Billing: Yes ([id number]) Assessment & Plan Assessment & Plan (1) Seasonal allergies: Code(s): J30.2 - Other seasonal allergic rhinitis Category: Medical Plan: Referred to apartment house manager restart montelukast and antihistamine (2) New onset headache: Code(s): R51.9 - Headache, unspecified Category: Medical Plan: Obtain CT of the brain (3) Hypertension: Code(s): I10 - Essential (primary) hypertension Category: Medical Plan: Continue Lisinopril (4) Postnasal drip: Code(s): R09.82 - Postnasal drip Category: Medical Plan: Continue Flonase antihistamine add montelukast and referred to ENT Orders: Orders CT head/brain wo IV con Today R51.9 - Headache, unspecified Referrals Allergy & Immunology Referral J30.2 - Other seasonal allergic rhinitis Ear/Nose/Throat Referral R09.82 - Postnasal drip Medications: Refilled montelukast 10 mg PO BEDTIME 90 tabs 3RF lisinopril 5 mg PO DAILY 90 tabs 2RF budesonide-formoterol 80-4.5 mcg/actuation (Symbicort) 2 puffs inhalation BID 10.2 grams 3RF
[2024-11-04 13:17] VITALS: BP 118/86; PULSE 81; TEMP 36.9; O2SAT 99; BMI 22.0
== END 2024-11-04 14:17 | disposition home or self-care (01) ==
LOC: HO.HMCC 13:15
PROVIDERS: PCP Internal Medicine; Visit Provider Internal Medicine
DX: J30.2 Other seasonal allergic rhinitis (principal); R51.9 Headache, unspecified; I10 Essential (primary) hypertension; R09.82 Postnasal drip

== ENCOUNTER → 2024-11-04 13:14 | Outpatient (BNVA) | payer OTHER, SELFPAY | PROVIDERS: PCP Internal Medicine; Visit Provider Internal Medicine | DX: I10 Essential (primary) hypertension (principal); R51.9 Headache, unspecified; J30.2 Other seasonal allergic rhinitis; R09.82 Postnasal drip; Z79.899 Other long term (current) drug therapy | CPT/HCPCS: 96127; 99212 ==

== ENCOUNTER 2024-11-11 11:31 | Emergency (ER) | payer OTHER, SELFPAY ==
--- NOTE | ~2024-11-11 | XR_ITS ---
EXAMINATION: XR CHEST CLINICAL INFORMATION: dyspnea COMPARISON: 07/14/2023. TECHNIQUE: 2 views of the chest were obtained. FINDINGS: The cardiac, hilar, and mediastinal contours are normal. The lungs are hyperaerated, however clear bilaterally. There is mild biapical parenchymal scarring. Previously seen left upper lobe opacity no longer evident, was likely summation artifact. There is no pneumothorax or pleural effusion. There is no focal osseous or soft tissue abnormality. XR/XR chest 2V IMPRESSION: Hyperexpanded lung parenchyma suggesting COPD. No active superimposed disease. Electronically signed by: Solomon Gallegos MD 11/11/2024 12:20 PM EDT
--- NOTE | 2024-11-11 11:33 | ECG_ITS ---
Test Reason : cp Blood Pressure : */* mmHG Vent. Rate : 84 BPM Atrial Rate : 84 BPM P-R Int : 166 ms QRS Dur : 76 ms QT Int : 362 ms P-R-T Axes : 69 86 72 degrees QTcB Int : 427 ms Normal sinus rhythm Possible Anterior infarct , age undetermined Abnormal ECG When compared with ECG of 09-Oct-2024 17:59, No significant change was found Referred By: Heraclio George Electronically Signed By: LISA GUAMAN MD
[2024-11-11 11:53] VITALS: BP 185/92; PULSE 89; RESP 19; TEMP 36.6; O2SAT 98; BMI 21.9
--- NOTE | 2024-11-11 11:53 | ED.GENADULT ---
HPI - General Adult General Chief complaint: Chest Pain Stated complaint: Chest Pain, Head pain Time Seen by Provider: 11/11/24 16:58 Source: patient Mode of arrival: ambulatory Limitations: no limitations History of Present Illness ED Provider: HPI narrative: Patient with History of asthma no known coronary artery disease comes here for pain in the left chest which is sharp in nature since yesterday evening which increases on movements taking a deep breath and palpation Related Data Home Medications ?Medication ?Instructions ?Recorded ?Confirmed aspirin 81 mg tablet,delayed 81 mg PO DAILY 11/04/24 11/04/24 release (Sheridan Low Dose Aspirin) biotin 10,000 mcg capsule (Roel mcg PO 11/04/24 11/04/24 Biotin) cholecalciferol (vitamin D3) 50 50 mcg PO DAILY 11/04/24 11/04/24 mcg (2,000 unit) capsule zinc gluconate 50 mg tablet 50 mg PO DAILY 11/04/24 11/04/24 Previous Rx's ?Medication ?Instructions ?Recorded albuterol sulfate 90 mcg/actuation 2 puff inhalation Q6H PRN 06/11/24 aerosol inhaler shortness of breath or wheezing #8.5 grams budesonide-formoterol HFA 80 2 puff inhalation BID #10.2 grams 11/04/24 mcg-4.5 mcg/actuation aerosol inhaler (Symbicort) lisinopril 5 mg tablet 5 mg PO DAILY #90 tabs 11/04/24 montelukast 10 mg tablet 10 mg PO BEDTIME #90 tabs 11/04/24 oxycodone 5 mg tablet 5 mg PO Q6H PRN pain #20 tabs 11/11/24 Allergies Allergy/AdvReac Type Severity Reaction Status Date / Time Androgenic Anabolic Steroid Allergy very high Verified 11/11/24 11:54 BP, palpitations Review of Systems Review of Systems: Yes all other systems are reviewed and are negative [facility] Past Medical History Medical History Hypertension Hyperparathyroidism Schatzki's ring Seasonal allergies New onset headache History of blood transfusion Surgical History History of partial hysterectomy Family History Family History Father Heart problem Mother No problems noted. 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 Housing: Apartment Unable to assess alcohol history related to: Unknown Alcohol intake: never Patient Tobacco Use Status: Never used Tobacco e-Cigarette/Vaping Use: Never Used Advance Directives: No Advance Directives Information Provided: No Do you have a plan to hurt others: No Plan service: No Current occupational status: employed Cognitive needs: No Hearing needs: Yes Vision needs: No Physical Exam ED Vital Signs: Vital Signs - 24 hr 11/11/24 11:53 11/11/24 15:31 Temperature 98 F Pulse Rate 89 69 Respiratory Rate 19 17 Blood Pressure 185/92 H 163/108 H Pulse Oximetry 98 100 Oxygen Delivery Method Room Air Room Air BMI result Body Mass Index 21.9 Appearance: Alert. Oriented X3. No acute distress. Eyes: No pallor or icterus ENT: Pharynx normal. Oral Mucosa moist Neck: Normal inspection. Neck supple. CVS: Normal heart rate and rhythm. Pulses normal. Respiratory: No respiratory distress. Equal air entry bilateral, no wheezing/rales/rhonchi local tenderness left 2nd intercostal space Abdomen: Soft and nontender. Bowel sounds are present, no mass palpable, no CVA tenderness Skin: Skin warm and dry. Normal skin color. Normal skin turgor. Extremities: No lower extremity edema. No calf tenderness Neuro: Oriented X 3. No motor deficit. No sensory deficit.No cerebellar signs , cranial nerves II-XII intact Course Course Course Narrative: RME, this is a rapid medical exam performed by Myron George please refer to primary provider for complete H&P- 59 year old female presents for evaluation of chest pain that started yesterday and has been constant. She reports the pain is 10/10. She had an ekg on arrival, plan for labs Medical Decision Making Medical Decision Making [facility] Narrative: Patient has atypical chest pain no significant drinks for the coronary artery disease chest pain reproducible on palpation pain is more than 12 hours cardiac enzymes negative EKG without ischemic changes will discharge patient analgesics patient can not take NSAIDs will give oxycodone Differential Diagnosis Differential Diagnoses: The differential diagnosis associated with the presentation includes ACS/costochondritis pain/pneumonia/pleurisy Lab Data [facility] Lab Attestation statement: I reviewed the patient's lab results. 11/11/24 12:00 11/11/24 12:00 Labs: Lab Results 11/11/24 Range/Units 12:00 WBC 7.4 (4.8-10.8) X10*3/uL RBC 5.15 (4.20-5.50) X10*6/uL Hgb 13.5 (12.0-16.0) g/dl Hct 42.9 (37.0-47.0) % MCV 83.3 (80.0-98.0) fL MCH 26.2 L (27.0-33.0) pg MCHC 31.5 (31.0-35.0) g/dl RDW 13.0 (11.0-16.0) % Plt Count 341 (160-400) X10*3/uL MPV 8.8 L (9.4-12.3) fL Immature Gran % (Auto) 0.3 (0.0-0.4) % Neut % (Auto) 55.8 (45-73) % Lymph % (Auto) 36.0 (20-40) % Liberty % (Auto) 5.0 (2-11) % Eos % (Auto) 2.4 (0-4) % Baso % (Auto) 0.5 (0-2) % Lymph # (Auto) 2.7 (1.2-4.9) X10*3/uL Liberty # (Auto) 0.4 (0.1-1.2) X10*3/uL Eos # (Auto) 0.2 (0.0-0.4) X10*3/uL Baso # (Auto) 0.0 (0.0-0.2) X10*3/uL Abs Immat Gran (auto) 0.02 (0.00-0.03) X10*3/uL Absolute Neuts (auto) 4.1 (2.0-8.3) x10*3/uL Absolute Nucleated RBC 0.000 (0.0-0.012) X10*3/uL Nucleated RBC % (auto) 0.0 (0.0-0.2) /100WBC Sodium 140 (135-145) mmol/L Potassium 4.1 (3.3-5.1) mmol/L Chloride 107 (96-108) mmol/L Carbon Dioxide 27 (22-29) mmol/L Anion Gap 10 L (12-20) BUN 9 (9-16) mg/dL Creatinine 0.63 (0.5-1.4) mg/dL Estim Creat Clear Calc 76.9 Estimated GFR > 60 Random Glucose 89 (60-115) mg/dL Calcium 10.8 H (8.4-10.2) mg/dL Total Bilirubin 0.5 (0.0-1.0) mg/dL AST 34 H (5-31) U/L ALT 43 H (0-31) U/L Alkaline Phosphatase 103 (39-117) U/L Troponin I High Sens < 2.7 (<3.5-17.0) ng/L Total Protein 8.0 (6.5-8.0) g/dL Albumin 4.8 (3.5-5.0) g/dL Lipase 14 (8-78) U/L Independent Interpretation I performed an independent interpretation of an: EKG Interpretation: Normal sinus rhythm with ventricular rate of 84 beats per minute poor progression of R-wave no acute STT wave changes no acute ischemia Discharge Plan Discharge Clinical Impression: Costalchondritis Patient Disposition: Home, Self-Care Instructions: Costochondritis (ED) Additional Instructions: your chest pain is from inflammation of cartilage takepain med as prescribed and follow up with your pcp Prescriptions: New oxycodone 5 mg tablet 5 mg PO Q6H PRN (Reason: pain) Qty: 20 0RF Rx Instructions: Partial Fill upon patient request. No Action albuterol sulfate 90 mcg/actuation HFA aerosol inhaler 2 puff inhalation Q6H PRN (Reason: shortness of breath or wheezing) Qty: 8.5 3RF aspirin [Sheridan Low Dose Aspirin] 81 mg tablet,delayed release (DR/EC) 81 mg PO DAILY cholecalciferol (vitamin D3) 50 mcg (2,000 unit) capsule 50 mcg PO DAILY biotin [Roel Biotin] 10,000 mcg capsule PO zinc gluconate 50 mg tablet 50 mg PO DAILY montelukast 10 mg tablet 10 mg PO BEDTIME Qty: 90 3RF budesonide-formoterol [Symbicort] 80-4.5 mcg/actuation HFA aerosol inhaler 2 puff inhalation BID Qty: 10.2 3RF lisinopril 5 mg tablet 5 mg PO DAILY Qty: 90 2RF Print Language: Burundian
[2024-11-11 12:12] LABS: MANUAL DIFF FLAG NO
[2024-11-11 12:15] LABS: Basophils Percent Auto 0.5 % (0-2); Eosinophils Absolute Auto 0.2 X10*3/uL (0.0-0.4); Eosinophils Percent Auto 2.4 % (0-4); Hematocrit 42.9 % (37.0-47.0); Hemoglobin 13.5 g/dl (12.0-16.0); Imm Gran Abs Auto 0.02 X10*3/uL (0.00-0.03); Imm Gran Pct Auto 0.3 % (0.0-0.4); Lymphocytes Absolute Auto 2.7 X10*3/uL (1.2-4.9); Mean Corpuscular HGB Conc 31.5 g/dl (31.0-35.0); Mean Corpuscular Hemoglobin 26.2 pg (27.0-33.0); Mean Corpuscular Volume 83.3 fL (80.0-98.0); Mean Platelet Volume 8.8 fL (9.4-12.3); Monocytes Absolute Auto 0.4 X10*3/uL (0.1-1.2); Neutrophils Absolute Auto 4.1 x10*3/uL (2.0-8.3); Neutrophils Percent Auto 55.8 % (45-73); Platelet Count 341 X10*3/uL (160-400); Red Blood Count 5.15 X10*6/uL (4.20-5.50); White Blood Count 7.4 X10*3/uL (4.8-10.8)
[2024-11-11 12:33] LABS: Alanine Aminotransferase 43 U/L (0-31); Albumin Level 4.8 g/dL (3.5-5.0); Alkaline Phosphatase 103 U/L (39-117); Anion Gap 10 (12-20); Aspartate Amino Transferase 34 U/L (5-31); Bilirubin Total 0.5 mg/dL (0.0-1.0); Blood Urea Nitrogen 9 mg/dL (9-16); Calcium 10.8 mg/dL (8.4-10.2); Carbon Dioxide 27 mmol/L (22-29); Chloride 107 mmol/L (96-108); Creatinine Clr Calc Pharmacy 76.9; Estimated Glomerular Filt Rate > 60; Glucose Random 89 mg/dL (60-115); Lipase 14 U/L (8-78); Potassium 4.1 mmol/L (3.3-5.1); Sodium 140 mmol/L (135-145)
[2024-11-11 12:39] LABS: Troponin-I High Sensitivity < 2.7 ng/L (<3.5-17.0)
[2024-11-11 15:31] VITALS: BP 163/108; PULSE 69; RESP 17; O2SAT 100
[2024-11-11] MEDS: oxyCODONE HCl Immed Release 5 MG TABLET PO (17:25)
[2024-11-11 17:28] VITALS: BP 163/108; PULSE 69; RESP 17; TEMP 36.9; O2SAT 100
== END 2024-11-11 17:28 | disposition home or self-care (01) ==
PROVIDERS: Physician Assistant; Emergency Provider Internal Medicine; PCP Internal Medicine
DX: M94.0 Chondrocostal junction syndrome [Tietze] (principal); R07.89 Other chest pain; Z79.899 Other long term (current) drug therapy
CPT/HCPCS: 36415; 71046; 80053; 83690; 84484; 85025; 93005; 99283; 99285

== ENCOUNTER → 2024-11-11 11:33 | Outpatient (BNV) | payer OTHER, SELFPAY | PROVIDERS: Emergency Provider Internal Medicine; PCP Internal Medicine; Visit Provider Internal Medicine Cardiovascular Disease | DX: R94.31 Abnormal electrocardiogram [ECG] [EKG] (principal); R07.9 Chest pain, unspecified | CPT/HCPCS: 93010 ==

== ENCOUNTER → 2024-11-11 11:55 | Outpatient (BNV) | payer OTHER, SELFPAY | PROVIDERS: Visit Provider Radiology Diagnostic Radiology | DX: R91.8 Other nonspecific abnormal finding of lung field (principal) | CPT/HCPCS: 71046 ==

== ENCOUNTER 2024-11-14 07:25 | Outpatient (REF) | payer OTHER, SELFPAY ==
--- NOTE | ~2024-11-14 | CT_ITS ---
EXAMINATION: CT HEAD WITHOUT CONTRAST CLINICAL INFORMATION: R51.9 - Headache, unspecified COMPARISON: None available. TECHNIQUE: Contiguous axial imaging was performed from the skull base to vertex without intravenous administration of contrast. This CT examination was performed using dose optimization techniques as appropriate, variously including the following: *Automated exposure control *Adjustment of mA and/or kV according to patient size (this includes techniques or standardized protocols for targeted exams where dose is matched to indication/reason for exam; i.e. extremities or head) *Use of iterative reconstruction technique DLP: 711 mGy-cm FINDINGS: No acute intracranial hemorrhage, mass effect, midline shift, hydrocephalus or herniation. Jewell-white matter differentiation is normal. Posterior cranial fossa contents demonstrated no acute hemorrhage or mass effect. There is an 11 mm peripheral calcified low density, pineal gland. Craniocervical junction demonstrates normal position of the cerebellar tonsils. Sellar/suprasellar region demonstrated no gross masses. Poor pneumatization of the frontal sinuses. No air-fluid levels in the included paranasal sinuses. Tympanic cavities and mastoid air cells are aerated. Pneumatized left petrous apex. Incomplete fusion posterior arch of C1, congenital. No gross masses or fluid collections in the intraconal or extraconal compartments of the orbits. No acute fracture in the bony calvarium or the included skull base. CT/CT head/brain wo IV con IMPRESSION: No acute intracranial hemorrhage. No acute brain abnormality by CT. 11 mm peripheral calcified cyst, pineal gland. Electronically signed by: Roque Diaz MD 11/14/2024 08:33 AM EDT
== END 2024-11-14 07:26 | disposition home or self-care (01) ==
LOC: HO.CT 07:25
PROVIDERS: PCP Internal Medicine; Visit Provider Internal Medicine
DX: R51.9 Headache, unspecified (principal)
CPT/HCPCS: 70450

== ENCOUNTER → 2024-11-14 07:27 | Outpatient (BNV) | payer OTHER, SELFPAY | PROVIDERS: PCP Internal Medicine; Visit Provider Radiology Diagnostic Radiology | DX: E34.8 Other specified endocrine disorders (principal) | CPT/HCPCS: 70450 ==

== ENCOUNTER 2024-11-25 07:53 | Outpatient (REF) | payer OTHER, SELFPAY ==
[2024-11-25 08:53] LABS: Creatinine, mg/dL 119.45
[2024-11-25 09:51] LABS: Albumin Level 4.5 g/dL (3.5-5.0); Calcium 10.7 mg/dL (8.4-10.2); Estimated Glomerular Filt Rate > 60; Magnesium 1.6 mg/dL (1.6-2.6); Phosphorus 2.7 mg/dL (2.7-4.5)
[2024-11-25 10:22] LABS: Parathyroid Hormone Intact 128.6 pg/mL (8.7-77.1)
[2024-11-25 10:23] LABS: Vitamin D 25-OH Total 29.6 ng/mL (>30)
[2024-11-25 13:42] LABS: Creatinine, 24Hr Urine 0.7 G/Day (1.0-2.0); Total Volume 24 Hour Urine 625 mL
[2024-11-27 15:08] LABS: Calcium, Ionized 5.9 mg/dL (4.7-5.5)
[2024-11-27 17:39] LABS: Calcium, 24 Hr Urine 169 mg/24 h; Calcium/Creatinine Ratio 230 mg/g creat (30-275); Creatinine 24Hr Urine 0.74 g/24 h (0.50-2.15)
== END 2024-11-25 07:54 | disposition home or self-care (01) ==
LOC: HO.LAB 07:53
PROVIDERS: PCP Internal Medicine; Visit Provider Student in an Organized Health Care Education/Training Program
DX: E21.3 Hyperparathyroidism, unspecified (principal); M81.0 Age-related osteoporosis without current pathological fracture
CPT/HCPCS: 36415; 82040; 82306; 82310; 82330; 82340; 82565; 82570; 83735; 83970; 84100

== ENCOUNTER 2024-12-02 14:29 | Outpatient (AMB) | payer OTHER, SELFPAY ==
--- NOTE | 2024-12-02 14:32 | A.OFFPC_ITS ---
Vital Signs 12/02/24 14:33 12/02/24 14:44 Height 5 ft 2 in Weight 124 lb BMI 22.7 BP 108/70 118/78 Blood Pressure Location Lt brachial Rt brachial Position Sitting Sitting Respiration 18 Pulse 90 Pulse Source Pulse Oximeter Temp 98.2 F Temp Source Oral Pulse Oximetry (%) 97 Oxygen Delivery Method Room Air Intake Visit Reasons: ER follow up Intake Note: Pt is here today for ER follow up visit. Allergies Androgenic Anabolic Steroid Allergy (Verified 12/02/24 14:39) very high BP, palpitations Medication List - Last Reconciled 12/02/24 by Chante Zelaya MD albuterol sulfate 90 mcg/actuation 2 puffs inhalation Q6H PRN aspirin (Sheridan Low Dose Aspirin) 81 mg PO DAILY biotin (Roel Biotin) mcg PO budesonide-formoterol 80-4.5 mcg/actuation (Symbicort) 2 puffs inhalation BID cholecalciferol (vitamin D3) 50 mcg PO DAILY lisinopril 5 mg PO DAILY montelukast 10 mg PO BEDTIME zinc gluconate 50 mg PO DAILY Tobacco use date assessed: 11/04/24 Dental Screening Dental Screen Date: 11/04/24 HPI ER follow up HPI Details Pt presents for f/u of ER visit for an episode of costochondritis. Patient is feeling better asthma controlled on Symbicort and hypertension is stable on lisinopril. [facility] Medical History (Updated 12/02/24 @ 15:18 by Chante Zelaya MD) Hypertension Costochondritis Asthma Hyperparathyroidism Schatzki's ring Seasonal allergies New onset headache History of blood transfusion Surgical History History of partial hysterectomy Family History Father Heart problem Mother No problems noted. 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 Housing: Apartment Unable to assess alcohol history related to: Unknown Alcohol intake: never Patient Tobacco Use Status: Never used Tobacco e-Cigarette/Vaping Use: Never Used service: No Current occupational status: employed Cognitive needs: No Hearing needs: Yes Vision needs: No Questionnaire Thrive Questionnaire Date Thrive assessed: 08/09/24 I am a: Patient What is your living situation today?: I have a steady place to live Within the past 12 months, did the food you bought not last and you didn't have the money to get more?: I choose not to answer this question THRIVE Score: 0 KANIKA-7 AMB Questionnaire KANIKA-7 Date KANIKA - 7 assessed: 11/04/24 Source: Developed by Drs. Paramjit Ramirez, Shu Mendes, Mert Cid and colleagues, with an educational gerardo from [employer]. Review of Systems Const All systems reviewed & are unremarkable except as noted in HPI and below ENT Reports no additional complaints Card Reports no additional complaints Resp Reports no additional complaints GI Reports no additional complaints Physical exam (Primary Care) Vital Signs: Last Vital Signs Temp 98.2 F 12/02/24 14:33 Pulse 90 12/02/24 14:33 Resp 18 12/02/24 14:33 BP 118/78 12/02/24 14:44 Pulse Ox 97 12/02/24 14:33 Oxygen Delivery Method Room Air 12/02/24 14:33 BMI result Body Mass Index 22.7 Tobacco/Smoking Status: Tobacco use Status Tobacco use date assessed 11/04/24 12/02/24 14:33 Patient Tobacco Use Status Never used Tobacco 12/02/24 14:33 e-Cigarette/Vaping Use Never Used 12/02/24 14:33 Thrive Assessment: Date of Thrive Assessment Date Thrive assessed 08/09/24 12/02/24 14:33 Const General: no acute distress HENMT Head: Yes normal to inspection Eyes General: appearance normal, both eyes and all related structures Neck Neck: Yes supple Resp Effort & Inspection: normal respiratory effort Auscultation: clear to auscultation bilaterally Cardio Rhythm: regular rhythm Heart sounds: S1 normal heart sound present and S2 normal heart sound present Coding Level of Care Code Est Pt Level 4 (45530) Diagnoses Costochondritis M94.0 Asthma J45.909 Hypertension I10 Assessment & Plan Assessment & Plan (1) Costochondritis: Code(s): M94.0 - Chondrocostal junction syndrome [Tietze] Category: Medical Plan: Recovered (2) Asthma: Code(s): J45.909 - Unspecified asthma, uncomplicated Category: Medical Plan: Continue Symbicort . 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
[2024-12-02 14:33] VITALS: BP 108/70; PULSE 90; RESP 18; TEMP 36.8; O2SAT 97; BMI 22.7
[2024-12-02 14:44] VITALS: BP 118/78
== END 2024-12-02 15:12 | disposition home or self-care (01) ==
PROVIDERS: PCP Internal Medicine; Visit Provider Internal Medicine
DX: M94.0 Chondrocostal junction syndrome [Tietze] (principal); J45.909 Unspecified asthma, uncomplicated; I10 Essential (primary) hypertension

== ENCOUNTER → 2024-12-02 14:29 | Outpatient (BNVA) | payer OTHER, SELFPAY | PROVIDERS: PCP Internal Medicine; Visit Provider Internal Medicine | DX: I10 Essential (primary) hypertension (principal); M94.0 Chondrocostal junction syndrome [Tietze]; J45.909 Unspecified asthma, uncomplicated; Z79.899 Other long term (current) drug therapy | CPT/HCPCS: 99212 ==

== ENCOUNTER 2024-12-12 15:49 | Outpatient (AMB) | payer OTHER, SELFPAY ==
[2024-12-12 15:51] VITALS: BP 110/74; PULSE 88; O2SAT 100; BMI 22.7
--- NOTE | 2024-12-12 15:51 | MHC.OFFVIS ---
Vital Signs 12/12/24 15:51 Height 5 ft 2 in Weight 124 lb 5.451 oz BMI 22.7 BP 110/74 Blood Pressure Location Lt brachial Position Sitting Pulse 88 Pulse Source Pulse Oximeter Pulse Oximetry (%) 100 Oxygen Delivery Method Room Air Intake Visit Reasons: Hyperparathyroidism Intake Note: Patient present today for Hyperparathyroidism. 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 Accompanied by: Self / Same As Patient Allergies Androgenic Anabolic Steroid Allergy (Verified 12/12/24 15:54) very high BP, palpitations Medication List - Last Reconciled 12/12/24 by Aviva Hennessy MD albuterol sulfate 90 mcg/actuation 2 puffs inhalation Q6H PRN aspirin (Sheridan Low Dose Aspirin) 81 mg PO DAILY biotin (Roel Biotin) mcg PO budesonide-formoterol 80-4.5 mcg/actuation (Symbicort) 2 puffs inhalation BID cholecalciferol (vitamin D3) 50 mcg PO DAILY lisinopril 5 mg PO DAILY montelukast 10 mg PO BEDTIME zinc gluconate 50 mg PO DAILY HPI Comments Details: 59-year-old female here today for follow up of PTH mediated hypercalcemia. HPI Chart review shows that she has had elevated calcium levels at least since October 2021 where calcium levels have ranged anywhere from 10.1-11.6. Highest calcium level was July 2023 when it was 11.6 with a an albumin of 4.4, corrected calcium would be 11.2. Most recent labs from 08/13/2024 showed calcium of 10.3, albumin of 4.4, corrected calcium would be 10.1. Normal kidney function. Vitamin-D was low at 13.8. Normal thyroid function. PTH was elevated at 146.1. 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 Miller., no DEXA records in our chart. No family history of kidney stones or calcium problems Vitamin D supplements : Naturemade unsure of dose 1000 units? 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 Physical exam General: sitting comfortably in no acute distress HEENT: normocephalic/atraumatic, Neck: supple Cardiac: normal heart sounds Pulm: normal breath sounds B/L, no added breath sounds Abd: not distended, no tenderness Extremities: no edema, no signs of myxedema Neuro: AAO x3, Speech: normal, no facial droop, moving all 4 extremities Laboratory Tests 10/05/21 08/06/22 07/14/23 19:48 22:45 14:42 Creatinine Estimated GFR Calcium 10.9 H 10.1 D 11.6 H D Albumin 4.3 4.4 25-OH Vitamin D Total TSH PTH Intact 08/13/24 08:18 Creatinine 0.73 Estimated GFR > 60 Calcium 10.3 H D Albumin 4.4 25-OH Vitamin D Total 13.8 L TSH 1.15 PTH Intact 146.1 H Laboratory Tests 11/25/24 11/25/24 06:28 08:16 Creatinine 0.66 Estimated GFR > 60 Calcium 10.7 H Ionized Calcium 5.9 H Phosphorus 2.7 Magnesium 1.6 Albumin 4.5 25-OH Vitamin D Total 29.6 L PTH Intact 128.6 H Ur 24 Hour Volume 625 Ur Creatinine mg/dL 119.45 Ur Creatinine 24 Hour 0.7 L Ur Calcium 24 Hr 169 Calcium/Creat 24 Hr 230 PFSH Medical History (Updated 12/02/24 @ 15:18 by Chante Zelaya MD) Hypertension Costochondritis Asthma Hyperparathyroidism Schatzki's ring Seasonal allergies New onset headache History of blood transfusion Surgical History History of partial hysterectomy Family History Father Heart problem Mother No problems noted. 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: Apartment Unable to assess alcohol history related to: Unknown Alcohol intake: never Patient Tobacco Use Status: Never used Tobacco e-Cigarette/Vaping Use: Never Used service: No Current occupational status: employed Cognitive needs: No Hearing needs: Yes Vision needs: No Physical Exam Vital Signs: Last Vital Signs Pulse 88 12/12/24 15:51 BP 110/74 12/12/24 15:51 Pulse Ox 100 12/12/24 15:51 Oxygen Delivery Method Room Air 12/12/24 15:51 BMI result Body Mass Index 22.7 Assessment & Plan Assessment & Plan (1) Hyperparathyroidism: Comment: Follows up with endocrinology Code(s): E21.3 - Hyperparathyroidism, unspecified Category: Medical Plan: 59-year-old female with a history of PTH mediated hypercalcemia here today to establish care. Per patient she was previously following with [facility] endocrinology, for hyperparathyroidism and osteoporosis, however had to change providers due to insurance changes. I do not have any available records from her prior endocrinology office visits. Chart review shows that she has had elevated calcium levels at least since October 2021 where calcium levels have ranged anywhere from 10.1-11.6. Highest calcium level was July 2023 when it was 11.6 with a an albumin of 4.4, corrected calcium would be 11.2. Most recent labs from 08/13/2024 showed calcium of 10.3, albumin of 4.4, corrected calcium would be 10.1. Normal kidney function. Vitamin-D was low at 13.8. Normal thyroid function. PTH was elevated at 146.1. Labs 11/25/2024: Calcium 10.7 with albumin of 4.5, corrected calcium would be 10.2, ionized calcium elevated at 5.9, normal kidney function with a EGFR greater than 60, vitamin-D improved 29.6, PTH improved to 128.6 but still elevated, 24 hour urine calcium of 169 however the 24 hour urine creatinine was low at 0.7, fractional excretion of calcium coming out to be 0.014, however calcium would likely be higher if corrected for the creatinine with a calcium creatinine ratio being 130. Now with the improved vitamin-D levels but PTH is still elevated, again pointing towards primary hyperparathyroidism. 24 hour urine calcium is not suggestive of FHH. I have been unable to get her bone density records from [facility] so far. We will repeat a bone density scan since the last 1 was done at least 2 years ago. At this time her diagnosis is consistent with hyperparathyroidism with prior history of kidney stones and a history of osteoporosis, she would qualify for surgery and I will plan to refer her to ENT surgeon in [place], her insurance is not accepted at [facility]. But 1st I would like to get a parathyroid neck CT scan as well as a repeat bone density. Plan: -obtain records from prior endo office visit notes as well as bone density records -continue vitamin-D 7613-0478 units daily (bring bottles to next visit) -continue to incorporate calcium intake in diet 1000 mg daily, given a list of foods to incorporate high calcium intake in diet, -ordered bone density scan including the forearm -ordered nuclear medicine parathyroid SPECT CT -maintain good hydration -follow up in 7 weeks to discuss results -repeat a set of blood work at [facility] prior to follow up (2) Osteoporosis: Comment: DEXA at [facility] 2022, f/u with Endo Code(s): M81.0 - Age-related osteoporosis without current pathological fracture Category: Medical Qualifiers: Osteoporosis type: other Presence of current pathological fracture: without current pathological fracture Qualified Code(s): M81.8 - Other osteoporosis without current pathological fracture Plan: See above Plan I spent 30 minutes in reviewing the record, seeing the patient and documenting in the medical record. Orders: Orders NM parathyroid SPECT w CT Today E21.3 - Hyperparathyroidism, unspecified Albumin Level Today E21.3 - Hyperparathyroidism, unspecified, M81.8 - Other osteoporosis without current pathological fracture Calcium Today E21.3 - Hyperparathyroidism, unspecified, M81.8 - Other osteoporosis without current pathological fracture Calcium, Ionized Today E21.3 - Hyperparathyroidism, unspecified, M81.8 - Other osteoporosis without current pathological fracture Parathyroid Hormone Intact Today E21.3 - Hyperparathyroidism, unspecified, M81.8 - Other osteoporosis without current pathological fracture Creatinine Today E21.3 - Hyperparathyroidism, unspecified, M81.8 - Other osteoporosis without current pathological fracture XR DEXA appendicular skeleton Today E21.3 - Hyperparathyroidism, unspecified, M81.8 - Other osteoporosis without current pathological fracture Phosphorus Today E21.3 - Hyperparathyroidism, unspecified, M81.8 - Other osteoporosis without current pathological fracture Patient Instructions: Do parathyroid neck scan , someone will call you to schedule this Do bone density scan , someone will call you to schedule this Do a set of blood work at [facility] , [address] [place] [address] , please make sure they fax the results to me Follow up in 7 weeks with me to dicuss results Continue vitmain D 2000 units daily Continue to incorporate calcium in diet such as milk and yogurt, no supplements Keep well hydrated Coding Level of Care Code Est Pt Level 4 (61787) Diagnoses Hyperparathyroidism E21.3 Other osteoporosis without current pathological fracture M81.8 Osteoporosis type: other Presence of current pathological fracture: without current pathological fracture Time Spent (min) 30
== END 2024-12-12 16:21 | disposition home or self-care (01) ==
LOC: HO.ENCR 15:49
PROVIDERS: PCP Internal Medicine; Visit Provider Student in an Organized Health Care Education/Training Program
DX: E21.3 Hyperparathyroidism, unspecified (principal); M81.8 Other osteoporosis without current pathological fracture
CPT/HCPCS: 99214

== ENCOUNTER → 2024-12-12 15:49 | Outpatient (BNVA) | payer OTHER, SELFPAY | PROVIDERS: PCP Internal Medicine; Visit Provider Student in an Organized Health Care Education/Training Program | DX: M81.0 Age-related osteoporosis without current pathological fracture (principal); E21.3 Hyperparathyroidism, unspecified | CPT/HCPCS: 99212 ==

== ENCOUNTER 2025-02-05 13:46 | Outpatient (AMB) | payer OTHER, SELFPAY ==
--- NOTE | 2025-02-05 13:56 | A.OFFPC_ITS ---
Vital Signs 02/05/25 13:57 Height 5 ft 2 in Weight 119 lb BMI 21.8 BP 118/76 Blood Pressure Location Lt brachial Position Sitting Respiration 17 Pulse 74 Pulse Source Pulse Oximeter Temp 98.1 F Temp Source Oral Pulse Oximetry (%) 100 Oxygen Delivery Method Room Air Intake Visit Reasons: 3 months f/up Intake Note: Pt is here today for 3 months follow up visit. Allergies Androgenic Anabolic Steroid Allergy (Verified 02/05/25 14:01) very high BP, palpitations Tobacco use date assessed: 02/05/25 Dental Screening Dental Screen Date: 02/05/25 Did you have a dental visit in the last 12 months?: Yes Did you have a dental problem in the last 6 months where you did not have access to dental care?: No Was dental information given to patient?: Patient has dentist HPI 3 months f/up HPI Details Patient presents for the follow-up of chronic asthma and hypertension stable on current medications. She was seen by allergies had allergy testing and was told that she is allergic to everything . Patient is concerned about being tested for food allergy and will follow-up with document scanner to discuss it. Patient complains of right hand tingling and numbness sensation around her thumb and right middle finger pain when a extending her fingers radiating to the forearm. 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 She denies any weakness in the hand law researcher, patient follows up with endocrinology for hyperparathyroidism workup [facility] Medical History Hypertension Costochondritis Asthma Hyperparathyroidism Schatzki's ring Seasonal allergies New onset headache History of blood transfusion Surgical History History of partial hysterectomy Family History Father Heart problem Mother No problems noted. 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 How often do you have a drink containing alcohol?: Never 3. How often do you have six or more drinks on one occasion?: Never Total Score: 0 KANIKA-7 AMB Questionnaire KANIKA-7 Date KANIKA - 7 assessed: 11/04/24 Source: Developed by Drs. Paramjit Ramirez, Shu Mendes, Mert Cid and colleagues, with an educational gerardo from [employer]. Review of Systems Const All systems reviewed & are unremarkable except as noted in HPI and below ENT Reports no additional complaints Card Reports no additional complaints Resp Reports no additional complaints GI Reports no additional complaints Reports no additional complaints Physical exam (Primary Care) Vital Signs: Last Vital Signs Temp 98.1 F 02/05/25 13:57 Pulse 74 02/05/25 13:57 Resp 17 02/05/25 13:57 BP 118/76 02/05/25 13:57 Pulse Ox 100 02/05/25 13:57 Oxygen Delivery Method Room Air 02/05/25 13:57 BMI result Body Mass Index 21.8 Tobacco/Smoking Status: Tobacco use Status Tobacco use date assessed 02/05/25 02/05/25 13:58 Patient Tobacco Use Status Never used Tobacco 02/05/25 13:57 e-Cigarette/Vaping Use Never Used 02/05/25 13:57 Thrive Assessment: Date of Thrive Assessment Date Thrive assessed 08/09/24 02/05/25 13:57 Const General: no acute distress HENMT Head: Yes normal to inspection Face and sinus: Yes normal facial exam Throat: Yes posterior oropharynx normal Eyes General: appearance normal, both eyes and all related structures Neck Neck: Yes supple Resp Effort & Inspection: normal respiratory effort Auscultation: clear to auscultation bilaterally Cardio Rhythm: regular rhythm Heart sounds: S1 normal heart sound present and S2 normal heart sound present GI Inspection: Yes normal to inspection Palpation (GI): Soft to palpation Percussion: Yes normal to percussion Extrem Right upper extremity: wrist (reproducible tenderness in PIP joint in the middle finger no joint swelling) Details: normal to inspection, radial pulse present, Tinel's negative and Phalen's negative Coding Level of Care Code Est Pt Level 4 (36058) Diagnoses Trigger finger, right middle finger M65.331 Right carpal tunnel syndrome G56.01 Hypertension I10 Asthma J45.909 Assessment & Plan Assessment & Plan (1) Trigger finger, right middle finger: Code(s): M65.331 - Trigger finger, right middle finger Category: Medical Plan: Foramina finger trigger finger patient will be referred to hand surgeon (2) Right carpal tunnel syndrome: Code(s): G56.01 - Carpal tunnel syndrome, right upper limb Category: Medical Plan: Obtain EMG to evaluate for right carpal tunnel (3) Hypertension: Code(s): I10 - Essential (primary) hypertension Category: Medical Plan: Continue lisinopril (4) Asthma: Code(s): J45.909 - Unspecified asthma, uncomplicated Category: Medical Plan: Continue Symbicort Orders: Orders NE nerve conduction velocity Today G56.01 - Carpal tunnel syndrome, right upper limb NE electromyogram (EMG) Today G56.01 - Carpal tunnel syndrome, right upper limb Comprehensive [place]. Panel Fast 6 Months I10 - Essential (primary) hypertension Complete Blood Count Auto Diff 6 Months I10 - Essential (primary) hypertension TSH reflex Free T4 6 Months I10 - Essential (primary) hypertension Vitamin D 25-OH (D2 and D3) 6 Months I10 - Essential (primary) hypertension Lipid Panel 6 Months I10 - Essential (primary) hypertension Referrals Hand Surgery Referral M65.331 - Trigger finger, right middle finger
[2025-02-05 13:57] VITALS: BP 118/76; PULSE 74; RESP 17; TEMP 36.7; O2SAT 100; BMI 21.8
== END 2025-02-05 14:28 | disposition home or self-care (01) ==
LOC: HO.HMCC 13:46
PROVIDERS: PCP Internal Medicine; Visit Provider Internal Medicine
DX: M65.331 Trigger finger, right middle finger (principal); G56.01 Carpal tunnel syndrome, right upper limb; I10 Essential (primary) hypertension; J45.909 Unspecified asthma, uncomplicated

== ENCOUNTER → 2025-02-05 13:46 | Outpatient (BNVA) | payer OTHER, SELFPAY | PROVIDERS: PCP Internal Medicine; Visit Provider Internal Medicine | DX: I10 Essential (primary) hypertension (principal); J45.909 Unspecified asthma, uncomplicated; M65.331 Trigger finger, right middle finger; G56.01 Carpal tunnel syndrome, right upper limb; Z79.899 Other long term (current) drug therapy | CPT/HCPCS: 99212 ==

== ENCOUNTER → 2025-02-21 10:58 | Outpatient (REF) | payer OTHER, SELFPAY ==
--- NOTE | ~2025-02-21 | NM_ITS ---
EXAMINATION: NM PARATHYROID SPECT AND CT HISTORY: E21.3 - Hyperparathyroidism, unspecified. TECHNIQUE: A parathyroid imaging study was performed following the intravenous administration of 30 mCi technetium 90 9M-sestamibi. Planar images were obtained at 30 minutes and at 2 hours. SPECT/CT imaging was performed at 2.5 hours from the skull base to the vidal. COMPARISON: There are no prior studies available for comparison. FINDINGS: Early images of the neck demonstrate activity within the thyroid gland. There is asymmetric activity in the region of the lower pole on the right. Two-hour delayed images demonstrate washout from the thyroid gland with mild retention of activity in the region of the lower pole of the right thyroid lobe. SPECT/CT images demonstrate a 1.1 x 0.9 cm soft tissue nodule on the right just inferior to the right thyroid lobe and adjacent to the esophagus, demonstrating increased uptake. Findings are highly suspicious for a parathyroid adenoma. NM/NM parathyroid SPECT w CT IMPRESSION: 1.1 x 0.9 cm soft tissue nodule just inferior to the right thyroid lobe and adjacent to the esophagus demonstrating increased activity. Findings are highly suspicious for a parathyroid adenoma. Electronically signed by: Paramjit Daniels MD 02/21/2025 02:58 PM EDT
== END ==
LOC: HO.NUCMED 10:58
PROVIDERS: PCP Internal Medicine; Visit Provider Student in an Organized Health Care Education/Training Program
DX: E21.3 Hyperparathyroidism, unspecified (principal)
CPT/HCPCS: 78072; A9500

== ENCOUNTER → 2025-02-21 11:00 | Outpatient (BNV) | payer OTHER, SELFPAY | PROVIDERS: PCP Internal Medicine; Visit Provider Radiology Diagnostic Radiology | DX: E21.3 Hyperparathyroidism, unspecified (principal) | CPT/HCPCS: 78072 ==

== ENCOUNTER 2025-03-10 14:29 | Outpatient (REF) | payer OTHER, SELFPAY ==
--- NOTE | ~2025-03-10 | MM_ITS ---
EXAMINATION: DXA BONE DENSITY EXTREMITY HISTORY: E21.3 - Hyperparathyroidism, unspecified TECHNIQUE: [employer] Dual energy absorptiometry (DEXA) of the lumbar spine, total left hip, femoral neck, and distal radius was performed. COMPARISON: There are no prior studies for comparison. FINDINGS: The bone mineral density of the lumbar spine is 0.729 g/cm2, corresponding to a T-score of -3.8, and a Z-score of -2.3. This is indicative of osteoporosis. The bone mineral density of the left total hip is 0.645 g/cm2, corresponding to a T-score of -2.9, and a Z-score of -1.8. This is indicative of osteoporosis. The bone mineral density of the left femoral neck is 0.667 g/cm2, corresponding to a T-score of -2.7, and a Z-score of -1.3. This is indicative of osteoporosis. The bone mineral density of the distal radius is 0.693 g/cm2, corresponding to a T-score of -2.1, and a Z-score of -1.3. This is indicative of osteopenia. MM/XR DEXA appendicular skeleton IMPRESSION: Based on bone mineral density, and according to World Health Organization (WHO) criteria, the diagnosis is consistent with osteoporosis. Statistically, 68% of repeat scans fall within 1 SD (+/- 0.010 g/cm2 for AP spine L1-L4) and 1 SD (+/- 0.012 g/cm2 for femur total) FRAX is a trademark of the [employer]'s [place] for Metabolic Bone Disease, a World Health Organization (WHO) Collaborating Center. Electronically signed by: Paramjit Daniels MD 03/11/2025 06:58 AM EDT
== END 2025-03-10 14:30 | disposition home or self-care (01) ==
LOC: HO.MAMMO 14:29
PROVIDERS: PCP Internal Medicine; Visit Provider Internal Medicine
DX: E21.3 Hyperparathyroidism, unspecified (principal); M81.8 Other osteoporosis without current pathological fracture
CPT/HCPCS: 77081

== ENCOUNTER → 2025-03-10 14:30 | Outpatient (BNV) | payer OTHER, SELFPAY | PROVIDERS: PCP Internal Medicine; Visit Provider Radiology Diagnostic Radiology | DX: E28.39 Other primary ovarian failure (principal) | CPT/HCPCS: 77081 ==

== ENCOUNTER 2025-03-20 15:04 | Outpatient (AMB) | payer OTHER, SELFPAY ==
--- NOTE | 2025-03-20 15:10 | A.OFFVIS_ITS ---
Vital Signs 3 03/20/25 15:11 Height 5 ft 2 in Weight 121 lb 4.068 oz BMI 22.2 BP 106/70 Blood Pressure Location Rt brachial Position Sitting Pulse 64 Pulse Source Pulse Oximeter Pulse Oximetry (%) 100 Oxygen Delivery Method Room Air Intake Visit Reasons: Hyperparathyroidism Intake Note: Patient present today for Hyperparathyroidism. Computational Linguist Required: No Accompanied by: Self / Same As Patient Allergies Androgenic Anabolic Steroid Allergy (Verified 02/05/25 14:01) very high BP, palpitations HPI Comments Details: 60-year-old female here today for follow up of PTH mediated hypercalcemia. HPI Chart review shows that she has had elevated calcium levels at least since October 2021 where calcium levels have ranged anywhere from 10.1-11.6. Highest calcium level was July 2023 when it was 11.6 with a an albumin of 4.4, corrected calcium would be 11.2. Most recent labs from 08/13/2024 showed calcium of 10.3, albumin of 4.4, corrected calcium would be 10.1. Normal kidney function. Vitamin-D was low at 13.8. Normal thyroid function. PTH was elevated at 146.1. 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 Miller., no DEXA records in our chart. No family history of kidney stones or calcium problems Vitamin D supplements : [employer] unsure of dose 1000 units? 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 Interval history 03/20/2025 Labs from [facility] 02/18/2025 showed elevated ionized calcium of 5.9, creatinine 0.99, EGFR 66, PTH 56, calcium 11.1, albumin 4.9, corrected calcium would be somewhere around 10.1, phosphorus low at 2.3 Parathyroid nuclear medicine scan SPECT and CT 02/21/25 suspicious for parathyroid adenoma inferior to the right lobe of the thyroid measuring about 1.1 X 0.9 cm. DEXA scan 03/10/2025 showed osteoporosis of the lumbar spine with T-score of-3.8, osteoporosis of the hip with T-score of-2.9 at the left total hip and-2.7 at the left femoral neck, osteopenia of the distal forearm with T-score of-2.1. Physical exam General: sitting comfortably in no acute distress HEENT: normocephalic/atraumatic, Neck: supple Cardiac: normal heart sounds Pulm: normal breath sounds B/L, no added breath sounds Abd: not distended, no tenderness Extremities: no edema, no signs of myxedema Neuro: AAO x3, Speech: normal, no facial droop, moving all 4 extremities Laboratory Tests 10/05/21 08/06/22 07/14/23 19:48 22:45 14:42 Creatinine Estimated GFR Calcium 10.9 H 10.1 D 11.6 H D Albumin 4.3 4.4 25-OH Vitamin D Total TSH PTH Intact 08/13/24 08:18 Creatinine 0.73 Estimated GFR > 60 Calcium 10.3 H D Albumin 4.4 25-OH Vitamin D Total 13.8 L TSH 1.15 PTH Intact 146.1 H Laboratory Tests 11/25/24 11/25/24 06:28 08:16 Creatinine 0.66 Estimated GFR > 60 Calcium 10.7 H Ionized Calcium 5.9 H Phosphorus 2.7 Magnesium 1.6 Albumin 4.5 25-OH Vitamin D Total 29.6 L PTH Intact 128.6 H Ur 24 Hour Volume 625 Ur Creatinine mg/dL 119.45 Ur Creatinine 24 Hour 0.7 L Ur Calcium 24 Hr 169 Calcium/Creat 24 Hr 230 EXAMINATION: DXA BONE DENSITY EXTREMITY 03/10/25 HISTORY: E21.3 - Hyperparathyroidism, unspecified TECHNIQUE: [employer] Dual energy absorptiometry (DEXA) of the lumbar spine, total left hip, femoral neck, and distal radius was performed. COMPARISON: There are no prior studies for comparison. FINDINGS: The bone mineral density of the lumbar spine is 0.729 g/cm2, corresponding to a T-score of -3.8, and a Z-score of -2.3. This is indicative of osteoporosis. The bone mineral density of the left total hip is 0.645 g/cm2, corresponding to a T-score of -2.9, and a Z-score of -1.8. This is indicative of osteoporosis. The bone mineral density of the left femoral neck is 0.667 g/cm2, corresponding to a T-score of -2.7, and a Z-score of -1.3. This is indicative of osteoporosis. The bone mineral density of the distal radius is 0.693 g/cm2, corresponding to a T-score of -2.1, and a Z-score of -1.3. This is indicative of osteopenia. MM/XR DEXA appendicular skeleton IMPRESSION: Based on bone mineral density, and according to World Health Organization (WHO) criteria, the diagnosis is consistent with osteoporosis. EXAMINATION: NM PARATHYROID SPECT AND CT 02/21/2025 HISTORY: E21.3 - Hyperparathyroidism, unspecified. TECHNIQUE: A parathyroid imaging study was performed following the intravenous administration of 30 mCi technetium 90 9M-sestamibi. Planar images were obtained at 30 minutes and at 2 hours. SPECT/CT imaging was performed at 2.5 hours from the skull base to the vidal. COMPARISON: There are no prior studies available for comparison. FINDINGS: Early images of the neck demonstrate activity within the thyroid gland. There is asymmetric activity in the region of the lower pole on the right. Two-hour delayed images demonstrate washout from the thyroid gland with mild retention of activity in the region of the lower pole of the right thyroid lobe. SPECT/CT images demonstrate a 1.1 x 0.9 cm soft tissue nodule on the right just inferior to the right thyroid lobe and adjacent to the esophagus, demonstrating increased uptake. Findings are highly suspicious for a parathyroid adenoma. NM/NM parathyroid SPECT w CT IMPRESSION: 1.1 x 0.9 cm soft tissue nodule just inferior to the right thyroid lobe and adjacent to the esophagus demonstrating increased activity. Findings are highly suspicious for a parathyroid adenoma. Electronically signed by: Paramjit Daniels MD 02/21/2025 02:58 PM EDT [facility] Medical History Hypertension Costochondritis Asthma Hyperparathyroidism Schatzki's ring Seasonal allergies New onset headache History of blood transfusion Surgical History History of partial hysterectomy Family History Father Heart problem Mother No problems noted. 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: Apartment Alcohol intake: never Patient Tobacco Use Status: Never used Tobacco e-Cigarette/Vaping Use: Never Used service: No Current occupational status: employed Cognitive needs: No Hearing needs: Yes Vision needs: No Physical Exam Vital Signs: Last Vital Signs Pulse 64 03/20/25 15:11 BP 106/70 03/20/25 15:11 Pulse Ox 100 03/20/25 15:11 Oxygen Delivery Method Room Air 03/20/25 15:11 BMI result Body Mass Index 22.2 Assessment & Plan Assessment & Plan (1) Hyperparathyroidism: Comment: Follows up with endocrinology Code(s): E21.3 - Hyperparathyroidism, unspecified Category: Medical Plan: 60-year-old female with a history of PTH mediated hypercalcemia here today for follow up Per patient she was previously following with [facility] endocrinology, for hyperparathyroidism and osteoporosis, however had to change providers due to insurance changes. I do not have any available records from her prior endocrinology office visits. Chart review shows that she has had elevated calcium levels at least since October 2021 where calcium levels have ranged anywhere from 10.1-11.6. Highest calcium level was July 2023 when it was 11.6 with a an albumin of 4.4, corrected calcium would be 11.2. Most recent labs from 08/13/2024 showed calcium of 10.3, albumin of 4.4, corrected calcium would be 10.1. Normal kidney function. Vitamin-D was low at 13.8. Normal thyroid function. PTH was elevated at 146.1. Labs 11/25/2024: Calcium 10.7 with albumin of 4.5, corrected calcium would be 10.2, ionized calcium elevated at 5.9, normal kidney function with a EGFR greater than 60, vitamin-D improved 29.6, PTH improved to 128.6 but still elevated, 24 hour urine calcium of 169 however the 24 hour urine creatinine was low at 0.7, fractional excretion of calcium coming out to be 0.014, however calcium would likely be higher if corrected for the creatinine with a calcium creatinine ratio being 130. Now with the improved vitamin-D levels but PTH is still elevated, again pointing towards primary hyperparathyroidism. 24 hour urine calcium is not suggestive of F[facility]. Labs from [facility] 02/18/2025 showed elevated ionized calcium of 5.9, creatinine 0.99, EGFR 66, PTH 56, calcium 11.1, albumin 4.9, corrected calcium would be somewhere around 10.1, phosphorus low at 2.3 Parathyroid nuclear medicine scan SPECT and CT 02/21/25 suspicious for parathyroid adenoma inferior to the right lobe of the thyroid measuring about 1.1 X 0.9 cm. DEXA scan 03/10/2025 showed osteoporosis of the lumbar spine with T-score of-3.8, osteoporosis of the hip with T-score of-2.9 at the left total hip and-2.7 at the left femoral neck, osteopenia of the distal forearm with T-score of-2.1. At this time given high calcium levels with a inappropriately normal or elevated PTH levels, her diagnosis is consistent with hyperparathyroidism with prior history of kidney stones and a diagnosis of osteoporosis, she would qualify for surgery and I will plan to refer her to ENT surgeon in [place], her insurance is not accepted at [facility] which would be the local hospital in our area. Plan: -we will send referral to Dr. Valentín Lagos MD [facility] Otolaryngology [address] [place] [address], [address] [place] [address] For evaluation for possible right parathyroidectomy versus exploratory parathyroidectomy -continue vitamin-D 7475-1442 units daily (bring bottles to next visit) -continue to incorporate calcium intake in diet 1000 mg daily, given a list of foods to incorporate high calcium intake in diet, -maintain good hydration (2) Osteoporosis: Comment: DEXA at [facility] 2022, f/u with Endo Code(s): M81.0 - Age-related osteoporosis without current pathological fracture Category: Medical Qualifiers: Osteoporosis type: other Presence of current pathological fracture: w ithout current pathological fracture Qualified Code(s): M81.8 - Other osteoporosis without current pathological fracture Plan: See above Plan I spent 30 minutes in reviewing the record, seeing the patient and documenting in the medical record. Orders: Referrals 2 Ear/Nose/Throat Referral E21.3 - Hyperparathyroidism, unspecified, M81.8 - Other osteoporosis without current pathological fracture Patient Instructions: We are putting in a referral for you to see the ENT surgeon at [facility] in [place]. You will have to call their number, this we will be given to you to register yourself as a patient in their system, once you have the registration ID, please call us back with that for us to successfully send your referral. If you have any confusion their questions you can call the office during office hours. Once we send the referral after you give us the registration ID, you should be hearing from someone's office within the next 3-4 weeks, if you do not hear back from them, please call our office during office hours to let us know. Details of the surgeon are given below: Valentín Lagos MD [facility] Otolaryngology [address], [address] [place] [address] Continue vitamin-D 2000 units daily Coding Level of Care Code Est Pt Level 4 (21407) Diagnoses Hyperparathyroidism E21.3 Other osteoporosis without current pathological fracture M81.8 Osteoporosis type: other Presence of current pathological fracture: without current pathological fracture Time Spent (min) 30
[2025-03-20 15:11] VITALS: BP 106/70; PULSE 64; O2SAT 100; BMI 22.2
== END 2025-03-20 15:36 | disposition home or self-care (01) ==
LOC: HO.ENCR 15:04
PROVIDERS: PCP Internal Medicine; Visit Provider Student in an Organized Health Care Education/Training Program
DX: E21.3 Hyperparathyroidism, unspecified (principal); M81.8 Other osteoporosis without current pathological fracture
CPT/HCPCS: 99214

== ENCOUNTER → 2025-03-20 15:04 | Outpatient (BNVA) | payer OTHER, SELFPAY | PROVIDERS: PCP Internal Medicine; Visit Provider Student in an Organized Health Care Education/Training Program | DX: E21.3 Hyperparathyroidism, unspecified (principal); M81.8 Other osteoporosis without current pathological fracture | CPT/HCPCS: 99212 ==

== ENCOUNTER 2025-03-25 13:04 | Outpatient (REF) | payer OTHER, SELFPAY ==
--- NOTE | 2025-03-25 14:06 | EMG_ITS ---
Chief complaint: Pain in right hand Reason for referral: G56.01 CTS right Referred by: Chante Zelaya MD Procedure done: Right upper extremity was performed with limited EMG completed Right median and ulnar motor studies were performed right median and ulnar mixed sensory, and radial sensory study was performed. Bilateral median and lateral antecubital brachial sensory studies were performed. Needle examination was limited at patient did not tolerate the test Median and ulnar motor studies did not reveal any significant abnormalities. Similarly, sensory studies were normal. Impression: This study did not reveal any sign of median or ulnar entrapment neuropathy. Needle examination was limited and radiculopathy could not be ruled out. Patient did not tolerate this test. [facility]
== END 2025-03-25 13:05 | disposition home or self-care (01) ==
LOC: HO.NEURO 13:04
PROVIDERS: PCP Internal Medicine; Visit Provider Internal Medicine
DX: G56.01 Carpal tunnel syndrome, right upper limb (principal)
CPT/HCPCS: 95885; 95910

== ENCOUNTER → 2025-03-25 14:06 | Outpatient (BNV) | payer OTHER, SELFPAY | PROVIDERS: PCP Internal Medicine; Visit Provider Psychiatry & Neurology Neurology | DX: G56.01 Carpal tunnel syndrome, right upper limb (principal) | CPT/HCPCS: 95885; 95909 ==

== ENCOUNTER 2025-04-11 14:27 | Outpatient (AMB) | payer OTHER, SELFPAY ==
--- NOTE | 2025-04-11 14:36 | MHC.OFFVIS ---
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 States she is having a sharp shooting pain in her right middle finger when attempting to grab a item or with heavy lifting. She also has numbness in her thumb and has a small cyst on her ulnar aspect of hand under her thumb. EMG: Impression: This study did not reveal any sign of median or ulnar entrapment neuropathy. Needle examination was limited and radiculopathy could not be ruled out. Patient did not tolerate this test. 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 States she is having a sharp shooting pain in her right middle finger when attempting to grab a item or with heavy lifting. She also has numbness in her thumb and has a small cyst on her radial aspect of hand under her thumb. Patient states that this cyst EMG: Impression: This study did not reveal any sign of median or ulnar entrapment neuropathy. Needle examination was limited and radiculopathy could not be ruled out. Patient did not tolerate this test. [facility] Medical History Hypertension Costochondritis Asthma Hyperparathyroidism Schatzki's ring Seasonal allergies New onset headache History of blood transfusion Surgical History History of partial hysterectomy Family History Father Heart problem Mother No problems noted. 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 Neuro: Normal sensation of the tips of all digits of the right hand at this time Vascular: Cap refill brisk Pain: Tenderness to palpation of the A1 fiorella of the right middle finger Some discomfort with flexion of the right middle finger Positive Pily on the right Tenderness to right radial styloid ROM: Patient is able to make a closed fist and extend all digits of the right hand fully No visible or palpable locking and catching Skin: No lacerations or abrasions. General: No ecchymosis, erythema, or evidence of infection. Psych: Appears grossly normal Affect normal Attitude cooperative Assessment & Plan Assessment & Plan (1) De Quervain's tenosynovitis, right: Code(s): M65.4 - Radial styloid tenosynovitis [de Quervain] Category: Medical (2) Tendinitis of finger of right hand: Code(s): M77.8 - Other enthesopathies, not elsewhere classified Category: Medical Plan 1. Pre trigger tendinitis of flexor tendon of right middle finger 2. Right de Quervain tenosynovitis Patient is educated about this condition Patient is educated about the treatment options available At this time, patient states she would like to proceed with conservative management with occupational therapy prior to any invasive treatment Therefore, OT referral was placed for treatment of the issues Patient is educated that if 6-8 weeks after beginning occupational therapy, she is not experiencing improvement, she should call us for discussion of further treatment options, including but not limited to injections Patient understands this in his amenable to this plan Follow-up as needed with any concerns Orders: Orders OT Evaluation and Treatment 04/11/25 M65.4 - Radial styloid tenosynovitis [de Quervain], M77.8 - Other enthesopathies, not elsewhere classified Coding Level of Care Code New Pt Level 3 (43161) Diagnoses De Quervain's tenosynovitis, right M65.4 Tendinitis of finger of right hand M77.8
[2025-04-11 14:45] VITALS: BMI 22.1
== END 2025-04-11 15:04 | disposition home or self-care (01) ==
LOC: HO.HOS 14:28
PROVIDERS: PCP Internal Medicine
DX: M65.841 Other synovitis and tenosynovitis, right hand (principal); M65.4 Radial styloid tenosynovitis [de Quervain]
CPT/HCPCS: 99203

== ENCOUNTER → 2025-04-11 14:27 | Outpatient (BNVA) | payer OTHER, SELFPAY | PROVIDERS: PCP Internal Medicine | DX: M65.4 Radial styloid tenosynovitis [de Quervain] (principal); M77.8 Other enthesopathies, not elsewhere classified | CPT/HCPCS: 99202 ==